=== PATIENT | male | born 1965 | race Hispanic/Latino ===

== ENCOUNTER 2017-11-04 12:51 | Inpatient (IN) | payer OTHER, SELFPAY ==
[~2017-11-04] VITALS: Ht 165.1 cm; Wt 99.2 kg
[2017-11-04] VITALS (18 sets, daily range): BP systolic 120–188; BP diastolic 59–85
[~2017-11-04 12:51] MED LIST: HYDR-4068 PO; METF850T2 PO
[2017-11-04] MEDS ORDERED: HEPARIN SODIUM 1000UNIT/ML 10ML VIAL ONE ×3 (13:55→17:38)
[2017-11-04] MEDS ORDERED: ISOVUE-300 100 ML VIAL IV ONE (13:55)
[2017-11-04] MEDS ORDERED: SODIUM BICARB 50MEQ 50ML VIAL ONE (13:55)
[2017-11-04] MEDS ORDERED: NITROGLYCERIN 5 MG/ML 10 ML VIAL IV ONE (13:55)
[2017-11-04] MEDS ORDERED: LIDOCAINE HCL 2% 20ML ONE (13:56)
[2017-11-04] MEDS ORDERED: ISOVUE-370 50ML VIAL IV ONE (14:13)
[2017-11-04] MEDS ORDERED: MIDAZOLAM HCL 1 MG/ML 2ML VIAL ONE ×3 (14:29→17:04)
[2017-11-04] MEDS ORDERED: MEPERIDINE-PF 25 MG/ML SYG ONE ×2 (14:29→15:08)
[2017-11-04] MEDS ORDERED: HEPARIN 25000 UNITS/250 ML D5W 250 ML IV ONE (15:46)
[2017-11-04] MEDS ORDERED: CEFUROXIME 1.5GM+NS 100ML 100 ML IV SCH (16:00)
[2017-11-04] MEDS ORDERED: DEXTROSE 50%-WATER 50 ML DISP.SYRIN IV PRN (16:15)
[2017-11-04] MEDS ORDERED: GLUCAGON 1MG KIT 1 MG ML IM PRN (16:15)
[2017-11-04] MEDS ORDERED: HEPARIN 25000 UNITS/250 ML D5W 250 ML IV PRN (16:15)
[2017-11-04] MEDS ORDERED: CEFUROXIME SODIUM 1.5 GM VIAL IVP SCH (16:45)
[2017-11-04] MEDS ORDERED: WATER FOR INJECTION,STERILE 20 ML VIAL IJ SCH (16:45)
[2017-11-04] MEDS ORDERED: PROPOFOL 10 MG/ML 20ML VIAL IV ONE ×2 (17:03→18:35)
[2017-11-04] MEDS ORDERED: FENTANYL CITRATE PF 50 MCG/1 ML 2ML VIAL ONE (17:03)
[2017-11-04] MEDS ORDERED: ROCURONIUM BROMIDE 10MG/1ML 5ML VL ONE (17:03)
[2017-11-04 17:04] LABS: HEMATOCRIT 42.4 % (42-54); MEAN CORPUSCULAR HEMOGLOBIN 29.7 pg (27.0-33.0); MEAN CORPUSCULAR VOLUME 90.1 fL (79-99); PLATELET COUNT (AUTO) 293 K/uL (130-400); RED CELL DISTRIBUTION WIDTH 13.1 % (11.0-15.5); WHITE BLOOD COUNT (AUTO) 12.3 K/uL (4.8-10.8)
[2017-11-04 17:17] LABS: CREATININE 0.8 mg/dL (0.5-1.5); POTASSIUM 4.5 mmol/L (3.5-5.1)
[2017-11-04 17:19] LABS: INR 1.05 (0.85-1.15); PARTIAL THROMBOPLASTIN TIME 33.1 SEC (26.3-35.5)
[2017-11-04] MEDS ORDERED: CEFUROXIME SODIUM 1.5 GM VIAL ONE (17:30)
[2017-11-04] MEDS ORDERED: OCTYL 2-CYANOACRYLATE 1 EACH TP ONE (17:38)
[2017-11-04] MEDS ORDERED: BACITRACIN 50,000 UNIT VIAL ONE (17:38)
[2017-11-04] MEDS ORDERED: THROMBIN-JMI 5000 UNIT/VIAL TP ONE (17:41)
[2017-11-04] MEDS ORDERED: CALCIUM CHLORIDE 100 MG/ML 10 ML SYG IVP ONE (17:41)
[2017-11-04] MEDS ORDERED: FENTANYL CITRATE PF 50 MCG/1 ML 5ML AMP IV ONE (17:50)
[2017-11-04] MEDS ORDERED: ACETAMINOPHEN 325 MG TAB PO PRN (18:00)
[2017-11-04] MEDS ORDERED: MAGNESIUM HYDROXIDE 30 ML/UDCUP PO PRN (18:00)
[2017-11-04] MEDS ORDERED: NEOSTIGMINE METHYLSULFATE 1MG/ML IV ONE (18:57)
[2017-11-04] MEDS ORDERED: GLYCOPYRROLATE 0.2 MG/ML 5 ML VIAL ONE (18:58)
[2017-11-04] MEDS: WATER FOR INJECTION,STERILE 20 ML VIAL IJ SCH (20:29)
[2017-11-04] MEDS: CEFUROXIME SODIUM 1.5 GM VIAL IVP SCH (20:29)
[2017-11-04] MEDS: INSULIN HUMULIN R 100 UNIT/ML 3ML SQ SCH (21:00)
[2017-11-04] MEDS ORDERED: ASPIRIN 325MG EC TAB 325 MG TABLET.DR PO SCH (21:00)
[2017-11-05] VITALS (15 sets, daily range): BP systolic 104–156; BP diastolic 57–85
[2017-11-05] MEDS: HYDROCODONE/ACETAMINOPHEN 5/325 MG TAB PO PRN ×2 (00:50→20:08)
[2017-11-05] MEDS ORDERED: CEFUROXIME 1.5GM+NS 100ML 100 ML IV SCH (02:00)
[2017-11-05 05:03] LABS: HEMATOCRIT 37.5 % (42-54); MEAN CORPUSCULAR HEMOGLOBIN 29.8 pg (27.0-33.0); MEAN CORPUSCULAR HGB CONC 33.4 g/dL (32.0-36.0); MEAN CORPUSCULAR VOLUME 89.3 fL (79-99); PLATELET COUNT (AUTO) 249 K/uL (130-400); RED CELL DISTRIBUTION WIDTH 13.1 % (11.0-15.5); WHITE BLOOD COUNT (AUTO) 11.7 K/uL (4.8-10.8)
[2017-11-05 05:07] LABS: INR 1.08 (0.85-1.15); PARTIAL THROMBOPLASTIN TIME 43.1 SEC (26.3-35.5); PROTHROMBIN TIME 11.3 SEC (9.6-11.6)
[2017-11-05 05:15] LABS: ALBUMIN 2.3 g/dL (3.5-5.0); BILIRUBIN,TOTAL 0.7 mg/dL (0.2-1.0); CREATININE 0.8 mg/dL (0.5-1.5); TOTAL PROTEIN, SERUM 6.8 g/dL (6.0-8.3)
[2017-11-05 05:21] LABS: HEMOGLOBIN A1C 12.2 % (4.0-6.0)
[2017-11-05] MEDS ORDERED: HEPARIN SODIUM 5000UNIT/ML 1ML VIAL IV STA (05:35)
[2017-11-05] MEDS ORDERED: HEPARIN SODIUM 5000UNIT/ML 1ML VIAL ONE (05:40)
[2017-11-05] MEDS: WATER FOR INJECTION,STERILE 20 ML VIAL IJ SCH ×2 (06:12→17:27)
[2017-11-05] MEDS: CEFUROXIME SODIUM 1.5 GM VIAL IVP SCH ×2 (06:12→17:27)
[2017-11-05] MEDS: INSULIN HUMULIN R 100 UNIT/ML 3ML SQ SCH ×4 (06:28→20:42)
[2017-11-05 08:31] LABS: INR 1.09 (0.85-1.15); PROTHROMBIN TIME 11.4 SEC (9.6-11.6)
[2017-11-05] MEDS ORDERED: ASPIRIN 81MG TAB.CHEW ONE (09:28)
[2017-11-05] MEDS: ASPIRIN 325MG EC TAB 325 MG TABLET.DR PO SCH (09:29)
[2017-11-05] MEDS: FAMOTIDINE/PF 20 MG/2 ML VIAL IV SCH (09:29)
[2017-11-05] MEDS: INSULIN DETEMIR 10ML 100 UNIT/ML 10ML SQ SCH (09:35)
[2017-11-05] MEDS: APIXABAN 5 MG TABLET PO SCH ×2 (12:04→20:03)
[2017-11-05] MEDS ORDERED: METF500T6 PO (17:35)
[2017-11-05] MEDS: ATORVASTATIN CALCIUM 40 MG TABLET PO SCH (20:03)
[2017-11-05] MEDS: METOPROLOL TARTRATE 25 MG TAB PO SCH (20:03)
[2017-11-06 03:34] LABS: MEAN CORPUSCULAR HEMOGLOBIN 30.9 pg (27.0-33.0); MEAN CORPUSCULAR HGB CONC 34.6 g/dL (32.0-36.0); MEAN CORPUSCULAR VOLUME 89.2 fL (79-99); PLATELET COUNT (AUTO) 205 K/uL (130-400); RED BLOOD CELL COUNT(AUTO) 3.92 MIL/uL (4.50-6.20); RED CELL DISTRIBUTION WIDTH 12.8 % (11.0-15.5); WHITE BLOOD COUNT (AUTO) 8.8 K/uL (4.8-10.8)
[2017-11-06 03:37] VITALS: BP 128/65
[2017-11-06 03:57] LABS: CREATININE 0.8 mg/dL (0.5-1.5); POTASSIUM 3.3 mmol/L (3.5-5.1)
[2017-11-06 04:06] LABS: BAND NEUTROPHILS % (MANUAL) 3 % (0-2); LYMPHOCYTES % (MANUAL) 18 % (22-44); MAN.DIFF COMMENT-IMPRESSION MANUAL DIFFERENTIAL; MONOCYTES % (MANUAL) 6 % (2-9); PLATELET MORPHOLOGY COMMENT ADEQUATE; SEGMENTED NEUTROPHILS % 73 % (40-70)
[2017-11-06] MEDS: CEFUROXIME SODIUM 1.5 GM VIAL IVP SCH ×2 (06:12→17:15)
[2017-11-06] MEDS: WATER FOR INJECTION,STERILE 20 ML VIAL IJ SCH ×2 (06:13→17:15)
[2017-11-06] MEDS: INSULIN HUMULIN R 100 UNIT/ML 3ML SQ SCH ×4 (06:14→21:45)
[2017-11-06] MEDS: INSULIN DETEMIR 10ML 100 UNIT/ML 10ML SQ SCH (06:15)
[2017-11-06] MEDS: HYDROCODONE/ACETAMINOPHEN 5/325 MG TAB PO PRN (06:31)
[2017-11-06 07:37] VITALS: BP 137/77
[2017-11-06] MEDS: ASPIRIN 325MG EC TAB 325 MG TABLET.DR PO SCH (09:03)
[2017-11-06] MEDS: APIXABAN 5 MG TABLET PO SCH ×2 (09:03→20:31)
[2017-11-06] MEDS: FAMOTIDINE/PF 20 MG/2 ML VIAL IV SCH (09:03)
[2017-11-06] MEDS: METOPROLOL TARTRATE 25 MG TAB PO SCH ×2 (09:03→20:31)
[2017-11-06 11:38] VITALS: BP 93/69
[2017-11-06] MEDS ORDERED: POTASSIUM CHLORIDE 10% ELIXIR 20 MEQ/15 ML UDCUP PO PRN (15:15)
[2017-11-06] MEDS ORDERED: POTASSIUM CHLORIDE 20MEQ/100ML 100 ML IV PRN (15:15)
[2017-11-06] MEDS ORDERED: LIDOCAINE HCL-MPF 1% 2ML VIAL IVP PRN (15:15)
[2017-11-06] MEDS: TRAMADOL HCL 50 MG TABLET PO PRN ×2 (15:23→23:15)
[2017-11-06] MEDS: POTASSIUM CHLORIDE 20 MEQ ERTAB PO PRN ×3 (15:23→18:42)
[2017-11-06 16:00] VITALS: BP 120/62
[2017-11-06 19:48] VITALS: BP 141/70
[2017-11-06] MEDS: ATORVASTATIN CALCIUM 40 MG TABLET PO SCH (20:31)
[2017-11-06] MEDS: GABAPENTIN 300 MG CAPSULE PO SCH (20:31)
[2017-11-06 23:43] VITALS: BP 142/71
[2017-11-07 04:15] VITALS: BP 134/75
[2017-11-07 05:22] LABS: CREATININE 0.8 mg/dL (0.5-1.5)
[2017-11-07] MEDS: CEFUROXIME SODIUM 1.5 GM VIAL IVP SCH (06:40)
[2017-11-07] MEDS: WATER FOR INJECTION,STERILE 20 ML VIAL IJ SCH (06:41)
[2017-11-07] MEDS: INSULIN HUMULIN R 100 UNIT/ML 3ML SQ SCH (06:42)
[2017-11-07] MEDS ORDERED: INSULIN GLARGINE 100 UNITS/ML 10 ML VIAL SQ SCH (07:30)
[2017-11-07 07:55] VITALS: BP 135/75
[2017-11-07] MEDS: GABAPENTIN 300 MG CAPSULE PO SCH (08:35)
[2017-11-07] MEDS: ASPIRIN 325MG EC TAB 325 MG TABLET.DR PO SCH (08:35)
[2017-11-07] MEDS: METOPROLOL TARTRATE 25 MG TAB PO SCH (08:35)
[2017-11-07] MEDS: APIXABAN 5 MG TABLET PO SCH (08:35)
[2017-11-07] MEDS: FAMOTIDINE/PF 20 MG/2 ML VIAL IV SCH (08:35)
[2017-11-07] MEDS: TRAMADOL HCL 50 MG TABLET PO PRN (08:39)
[2017-11-07] MEDS ORDERED: ATOR40TA69 PO (08:49)
[2017-11-07] MEDS ORDERED: APIX5TAB PO (08:49)
[2017-11-07] MEDS ORDERED: ASPI-891 PO (08:49)
[2017-11-07] MEDS ORDERED: GABA-531 PO (08:49)
[2017-11-07] MEDS ORDERED: METO25 PO (08:49)
[2017-11-07] MEDS ORDERED: TRAM50TA2 PO (08:49)
[2017-11-07] MEDS ORDERED: METF500T6 PO (08:49)
[2017-11-07] MEDS ORDERED: GLIP5TAB11 PO (08:49)
[2017-11-07 11:17] VITALS: BP 137/76
== END 2017-11-07 14:15 | disposition home or self-care (01) | DRG 271 ==
LOC: 2DH 13:50 → 2BH 18:21 → 2AH 11-05 14:08 → 2DH 11-06 10:39
PROVIDERS: ADMIT Family Medicine; ATTEND Family Medicine
PROC: 047K3ZZ Dilation of Right Femoral Artery, Percutaneous Approach (ICD-10-PCS; 2017-11-04)
PROC: B41C1ZZ Fluoroscopy of Pelvic Arteries using Low Osmolar Contrast (ICD-10-PCS; 2017-11-04)
PROC: 04CC3ZZ Extirpation of Matter from Right Common Iliac Artery, Percutaneous Approach (ICD-10-PCS; 2017-11-04)
PROC: 04CK3ZZ Extirpation of Matter from Right Femoral Artery, Percutaneous Approach (ICD-10-PCS; 2017-11-04)
PROC: 04CM3ZZ Extirpation of Matter from Right Popliteal Artery, Percutaneous Approach (ICD-10-PCS; 2017-11-04)
PROC: B4101ZZ Fluoroscopy of Abdominal Aorta using Low Osmolar Contrast (ICD-10-PCS; principal; 2017-11-04 17:00)
DX: I74.5 Embolism and thrombosis of iliac artery (principal); N39.0 Urinary tract infection, site not specified; E11.51 Type 2 diabetes mellitus with diabetic peripheral angiopathy without gangrene; E46 Unspecified protein-calorie malnutrition; E11.65 Type 2 diabetes mellitus with hyperglycemia; E78.5 Hyperlipidemia, unspecified; I10 Essential (primary) hypertension; I70.209 Unspecified atherosclerosis of native arteries of extremities, unspecified extremity; I99.8 Other disorder of circulatory system; I25.2 Old myocardial infarction; Z79.01 Long term (current) use of anticoagulants; Z79.82 Long term (current) use of aspirin; Z83.3 Family history of diabetes mellitus
CPT/HCPCS: 36415; 37220; 37222; 37224; 37246; 75625; 75635; 75710; 80048; 80053; 80061; 82948; 83036; 85025; 85027; 85610; 85730; 86850; 86900; 86901; 86922; 87804; 88304; 93005; 93306; 99152; 99153; A4344; C1725; C1757; C1769; C1893; C1894; J0697; J1644; J1815; J2175; J2250; J2704; J2710; J3010; J3490; J7030; J7040; Q9967

== ENCOUNTER 2017-12-22 12:39 | Inpatient (IN) | payer OTHER, SELFPAY ==
[~2017-12-22] VITALS: Ht 165.1 cm; Wt 95.4 kg
[~2017-12-22 12:39] MED LIST changes: +APIX5TAB PO; +ASPI-891 PO; +ATOR40TA69 PO; +GABA-531 PO; +GLIP5TAB11 PO; +METF500T6 PO; -METF850T2 PO; +METO25 PO; +TRAM50TA2 PO
[2017-12-22 13:28] LABS: BASOPHILS % (AUTO) 0.8 % (0.0-5.0); EOSINOPHILS % (AUTO) 0.8 % (0.0-8.0); LYMPHOCYTES % (AUTO) 27.1 % (21.0-51.0); MEAN CORPUSCULAR HGB CONC 33.1 g/dL (32.0-36.0); MEAN CORPUSCULAR VOLUME 87.4 fL (79-99); MONOCYTES % (AUTO) 6.8 % (3.0-13.0); NEUTROPHILS % (AUTO) 64.5 % (40.0-77.0); PLATELET COUNT (AUTO) 291 K/uL (130-400); RED BLOOD CELL COUNT(AUTO) 4.35 MIL/uL (4.50-6.20); RED CELL DISTRIBUTION WIDTH 13.9 % (11.0-15.5); WHITE BLOOD COUNT (AUTO) 9.1 K/uL (4.8-10.8)
[2017-12-22 13:36] LABS: CREATININE 0.8 mg/dL (0.5-1.5); POTASSIUM 3.6 mmol/L (3.5-5.1)
[2017-12-22 13:40] LABS: ALBUMIN 3.1 g/dL (3.5-5.0); BILIRUBIN,TOTAL 0.3 mg/dL (0.2-1.0); TOTAL PROTEIN, SERUM 8.1 g/dL (6.0-8.3)
[2017-12-22 14:46] LABS: INR 1.05 (0.85-1.15); PARTIAL THROMBOPLASTIN TIME 24.6 SEC (26.3-35.5)
[2017-12-22] MEDS: SODIUM CHLORIDE 0.9% 1000ML 1,000 ML IV SCH (15:38)
[2017-12-22] MEDS ORDERED: LACTULOSE 20 GM/30 ML UDCUP PO PRN (15:45)
[2017-12-22] MEDS ORDERED: ACETAMINOPHEN 325 MG TAB PO PRN ×2 (15:45)
[2017-12-22] MEDS ORDERED: MAG HYDROX/AL HYDROX/SIMETH ES 30 ML SUSP UDCUP PO PRN (15:45)
[2017-12-22] MEDS ORDERED: GUAIFENESIN-DM 200/20 MG 10 ML PO PRN (15:45)
[2017-12-22] MEDS ORDERED: ONDANSETRON HCL 4 MG/2 ML VIAL IV PRN (15:45)
[2017-12-22] MEDS ORDERED: HEPARIN SODIUM 5000UNIT/ML 1ML VIAL ONE (15:49)
[2017-12-22] MEDS ORDERED: HEPARIN 25000 UNITS/250 ML D5W 250 ML IV ONE (15:50)
[2017-12-22] MEDS ORDERED: MORPHINE SULFATE 4 MG/1ML SYG ONE (16:17)
[2017-12-22] MEDS ORDERED: ONDANSETRON HCL 4 MG/2 ML VIAL ONE (16:18)
[2017-12-22] MEDS ORDERED: TRAMADOL HCL 50 MG TABLET PO PRN (19:15)
[2017-12-22] MEDS ORDERED: ATORVASTATIN CALCIUM 40 MG TABLET PO SCH (21:00)
[2017-12-22] MEDS ORDERED: SODIUM CHLORIDE 0.9% 1000ML 1,000 ML IV ONE (21:20)
[2017-12-22] MEDS ORDERED: MORPHINE SULFATE 2 MG/ML 1ML SYG ONE (21:21)
[2017-12-22 21:24] LABS: INR 1.07 (0.85-1.15); PARTIAL THROMBOPLASTIN TIME 63.5 SEC (26.3-35.5); PROTHROMBIN TIME 11.2 SEC (9.6-11.6)
[2017-12-22 22:30] VITALS: BP 133/57
[2017-12-22] MEDS ORDERED: DEXTROSE 50%-WATER 50 ML DISP.SYRIN IV PRN (22:45)
[2017-12-22] MEDS ORDERED: LIDOCAINE HCL-MPF 1% 2ML VIAL IVP PRN (22:45)
[2017-12-22] MEDS ORDERED: GLUCAGON 1MG KIT 1 MG ML IM PRN (22:45)
[2017-12-22] MEDS ORDERED: POTASSIUM CHLORIDE 10% ELIXIR 20 MEQ/15 ML UDCUP PO PRN (22:45)
[2017-12-22] MEDS ORDERED: POTASSIUM CHLORIDE 20MEQ/100ML 100 ML IV PRN (22:45)
[2017-12-22 23:00] VITALS: BP 126/74
[2017-12-22] MEDS: METOPROLOL TARTRATE 25 MG TAB PO SCH (23:45)
[2017-12-22] MEDS: GLIPIZIDE 5 MG TABLET PO SCH (23:45)
[2017-12-22] MEDS: FAMOTIDINE/PF 20 MG/2 ML VIAL IV SCH (23:45)
[2017-12-22] MEDS: GABAPENTIN 300 MG CAPSULE PO SCH (23:46)
[2017-12-23 03:00] VITALS: BP 104/57
[2017-12-23 03:29] LABS: INR 1.07 (0.85-1.15); PARTIAL THROMBOPLASTIN TIME 50.2 SEC (26.3-35.5); PROTHROMBIN TIME 11.2 SEC (9.6-11.6)
[2017-12-23] MEDS: SODIUM CHLORIDE 0.9% 1000ML 1,000 ML IV SCH ×3 (06:09→16:30)
[2017-12-23] MEDS: INSULIN HUMULIN R 100 UNIT/ML 3ML SQ SCH ×4 (06:09→21:00)
[2017-12-23] MEDS: HEPARIN 25000 UNITS/250 ML D5W 250 ML IV PRN ×2 (06:15→23:21)
[2017-12-23] MEDS ORDERED: LISI2.5T2 PO (07:00)
[2017-12-23] MEDS ORDERED: CILO50TA PO (07:00)
[2017-12-23] MEDS ORDERED: SIMV40TA5 PO (07:00)
[2017-12-23 08:00] VITALS: BP 115/69
[2017-12-23] MEDS: MORPHINE SULFATE 2 MG/ML 1ML SYG IV PRN (08:22)
[2017-12-23] MEDS: ASPIRIN 325MG EC TAB 325 MG TABLET.DR PO SCH (09:00)
[2017-12-23] MEDS: GLIPIZIDE 5 MG TABLET PO SCH ×2 (09:00→21:07)
[2017-12-23 10:11] LABS: INR 1.09 (0.85-1.15); PARTIAL THROMBOPLASTIN TIME 48.1 SEC (26.3-35.5); PROTHROMBIN TIME 11.4 SEC (9.6-11.6)
[2017-12-23] MEDS: FAMOTIDINE/PF 20 MG/2 ML VIAL IV SCH ×2 (11:26→21:07)
[2017-12-23] MEDS: GABAPENTIN 300 MG CAPSULE PO SCH ×3 (11:26→21:00)
[2017-12-23] MEDS: METOPROLOL TARTRATE 25 MG TAB PO SCH ×2 (11:26→21:06)
[2017-12-23 12:00] VITALS: BP 129/69
[2017-12-23 16:00] VITALS: BP 99/54
[2017-12-23] MEDS ORDERED: WATER FOR INJECTION,STERILE 20 ML VIAL IJ SCH (18:45)
[2017-12-23] MEDS ORDERED: CEFUROXIME 1.5GM+NS 100ML 100 ML IV SCH (18:45)
[2017-12-23] MEDS: CEFUROXIME SODIUM 1.5 GM VIAL IVP SCH (18:45)
[2017-12-23 18:56] LABS: BASOPHILS % (AUTO) 0.9 % (0.0-5.0); EOSINOPHILS % (AUTO) 0.9 % (0.0-8.0); HEMATOCRIT 32.9 % (42-54); LYMPHOCYTES % (AUTO) 35.2 % (21.0-51.0); MEAN CORPUSCULAR HEMOGLOBIN 29.3 pg (27.0-33.0); MEAN CORPUSCULAR HGB CONC 33.7 g/dL (32.0-36.0); MEAN CORPUSCULAR VOLUME 86.9 fL (79-99); MONOCYTES % (AUTO) 8.6 % (3.0-13.0); NEUTROPHILS % (AUTO) 54.4 % (40.0-77.0); PLATELET COUNT (AUTO) 236 K/uL (130-400); RED BLOOD CELL COUNT(AUTO) 3.78 MIL/uL (4.50-6.20); RED CELL DISTRIBUTION WIDTH 13.6 % (11.0-15.5); WHITE BLOOD COUNT (AUTO) 5.3 K/uL (4.8-10.8)
[2017-12-23 19:03] LABS: INR 1.1 (0.85-1.15); PARTIAL THROMBOPLASTIN TIME 51.2 SEC (26.3-35.5); PROTHROMBIN TIME 11.5 SEC (9.6-11.6)
[2017-12-23 19:12] LABS: ALBUMIN 2.4 g/dL (3.5-5.0); BILIRUBIN,TOTAL 0.4 mg/dL (0.2-1.0); CREATININE 0.9 mg/dL (0.5-1.5); POTASSIUM 3.6 mmol/L (3.5-5.1); TOTAL PROTEIN, SERUM 6.6 g/dL (6.0-8.3)
[2017-12-23 19:38] VITALS: BP 136/76
[2017-12-23] MEDS: ATORVASTATIN CALCIUM 20 MG TABLET PO SCH (21:07)
[2017-12-24] VITALS (23 sets, daily range): BP systolic 89–138; BP diastolic 58–90
[2017-12-24] MEDS: MORPHINE SULFATE 2 MG/ML 1ML SYG IV PRN (03:28)
[2017-12-24 04:03] LABS: HEMATOCRIT 35.2 % (42-54); MEAN CORPUSCULAR HEMOGLOBIN 29.4 pg (27.0-33.0); MEAN CORPUSCULAR HGB CONC 33.7 g/dL (32.0-36.0); MEAN CORPUSCULAR VOLUME 87.2 fL (79-99); PLATELET COUNT (AUTO) 261 K/uL (130-400); RED BLOOD CELL COUNT(AUTO) 4.03 MIL/uL (4.50-6.20); RED CELL DISTRIBUTION WIDTH 13.6 % (11.0-15.5); WHITE BLOOD COUNT (AUTO) 5.1 K/uL (4.8-10.8)
[2017-12-24 04:04] LABS: INR 1.07 (0.85-1.15); PARTIAL THROMBOPLASTIN TIME 50.9 SEC (26.3-35.5); PROTHROMBIN TIME 11.2 SEC (9.6-11.6)
[2017-12-24 04:09] LABS: CREATININE 0.8 mg/dL (0.5-1.5); POTASSIUM 3.7 mmol/L (3.5-5.1)
[2017-12-24] MEDS: INSULIN HUMULIN R 100 UNIT/ML 3ML SQ SCH ×4 (07:30→21:09)
[2017-12-24] MEDS: METOPROLOL TARTRATE 25 MG TAB PO SCH ×2 (08:04→20:48)
[2017-12-24] MEDS: SODIUM CHLORIDE 0.9% 1000ML 1,000 ML IV SCH ×3 (08:48→16:46)
[2017-12-24] MEDS: FAMOTIDINE/PF 20 MG/2 ML VIAL IV SCH ×2 (09:00→20:37)
[2017-12-24] MEDS ORDERED: NON-FORMULARY MEDICATION 1 EACH (Simvastatin 40 MG) PO SCH (09:00)
[2017-12-24] MEDS: GABAPENTIN 300 MG CAPSULE PO SCH ×3 (09:00→20:51)
[2017-12-24] MEDS: ASPIRIN 325MG EC TAB 325 MG TABLET.DR PO SCH (09:00)
[2017-12-24] MEDS: GLIPIZIDE 5 MG TABLET PO SCH ×2 (09:00→20:50)
[2017-12-24] MEDS: LISINOPRIL 2.5 MG TABLET PO SCH (09:00)
[2017-12-24] MEDS ORDERED: PHENYLEPHRINE HCL 10 MG/ML 1ML VIAL IV ONE ×3 (09:22→11:38)
[2017-12-24] MEDS ORDERED: NEOSTIGMINE 5MG/5ML SYR IV ONE ×2 (09:22→11:37)
[2017-12-24] MEDS ORDERED: MIDAZOLAM HCL 1 MG/ML 2ML VIAL ONE (09:22)
[2017-12-24] MEDS ORDERED: DEXAMETHASONE SOD PHOSPHATE 10MG/ML 1ML VIAL ONE ×2 (09:22→11:38)
[2017-12-24] MEDS ORDERED: GLYCOPYRROLATE 0.2 MG/ML 5 ML VIAL ONE ×2 (09:22→11:38)
[2017-12-24] MEDS ORDERED: ONDANSETRON HCL 4 MG/2 ML VIAL ONE ×2 (09:22→11:38)
[2017-12-24] MEDS ORDERED: LIDOCAINE HCL MPF 1% 5ML VIAL ONE (09:22)
[2017-12-24] MEDS ORDERED: LIDOCAINE PF 2% 5ML ABBOJECT ONE (09:22)
[2017-12-24] MEDS ORDERED: LIDOCAINE HCL 4% LTA SOL 4 ML VIAL ONE (09:22)
[2017-12-24] MEDS ORDERED: ROCURONIUM BROMIDE 10MG/1ML 5ML VL ONE ×2 (09:22→11:37)
[2017-12-24] MEDS ORDERED: LIDOCAINE HCL 2% JELLY 5 ML ONE (09:22)
[2017-12-24] MEDS ORDERED: SODIUM CHLORIDE 0.9% 10 ML VIAL ONE (09:22)
[2017-12-24] MEDS ORDERED: FENTANYL CITRATE PF 50 MCG/1 ML 5ML AMP IV ONE (09:23)
[2017-12-24] MEDS: CEFUROXIME SODIUM 1.5 GM VIAL IVP SCH (10:45)
[2017-12-24] MEDS ORDERED: BACITRACIN 50,000 UNIT VIAL ONE (10:49)
[2017-12-24] MEDS ORDERED: THROMBIN-JMI 5000 UNIT/VIAL TP ONE (11:04)
[2017-12-24] MEDS ORDERED: SUCCINYLCHOLINE 200MG/10ML SYR ONE (11:37)
[2017-12-24] MEDS ORDERED: HEPARIN SODIUM 1000UNIT/ML 10ML VIAL ONE (11:37)
[2017-12-24] MEDS ORDERED: PROPOFOL 10 MG/ML 20ML VIAL IV ONE (12:38)
[2017-12-24] MEDS ORDERED: MORPHINE SULFATE 10 MG/ML 1ML SYG ONE (12:40)
[2017-12-24] MEDS ORDERED: MAGNESIUM HYDROXIDE 30 ML/UDCUP PO PRN (13:15)
[2017-12-24] MEDS ORDERED: ACETAMINOPHEN 325 MG TAB PO PRN (13:15)
[2017-12-24] MEDS ORDERED: CEFAZOLIN 2GM / 50 ML 50 ML IV SCH (13:15)
[2017-12-24] MEDS: CEFAZOLIN SODIUM 1 GM VIAL IVP SCH ×2 (13:30→21:01)
[2017-12-24] MEDS: HYDROCODONE/ACETAMINOPHEN 5/325 MG TAB PO PRN ×2 (16:07→20:50)
[2017-12-24] MEDS: ATORVASTATIN CALCIUM 20 MG TABLET PO SCH (20:50)
[2017-12-25] VITALS (21 sets, daily range): BP systolic 73–122; BP diastolic 37–73
[2017-12-25] MEDS: SODIUM CHLORIDE 0.9% 1000ML 1,000 ML IV SCH ×4 (01:06→23:07)
[2017-12-25] MEDS: HYDROCODONE/ACETAMINOPHEN 5/325 MG TAB PO PRN ×2 (01:06→03:19)
[2017-12-25 04:12] LABS: ALBUMIN 2.3 g/dL (3.5-5.0); BILIRUBIN,TOTAL 0.5 mg/dL (0.2-1.0); CREATININE 0.9 mg/dL (0.5-1.5); POTASSIUM 3.8 mmol/L (3.5-5.1); TOTAL PROTEIN, SERUM 6.6 g/dL (6.0-8.3)
[2017-12-25] MEDS: CEFAZOLIN SODIUM 1 GM VIAL IVP SCH (05:15)
[2017-12-25] MEDS: INSULIN HUMULIN R 100 UNIT/ML 3ML SQ SCH ×4 (06:30→21:06)
[2017-12-25] MEDS: POTASSIUM CHLORIDE 20 MEQ ERTAB PO PRN (07:26)
[2017-12-25] MEDS: GABAPENTIN 300 MG CAPSULE PO SCH ×3 (08:34→21:00)
[2017-12-25] MEDS: CLOPIDOGREL BISULFATE 75 MG TAB PO SCH (08:34)
[2017-12-25] MEDS: ASPIRIN 325MG EC TAB 325 MG TABLET.DR PO SCH (08:34)
[2017-12-25] MEDS: FAMOTIDINE/PF 20 MG/2 ML VIAL IV SCH (08:34)
[2017-12-25] MEDS: GLIPIZIDE 5 MG TABLET PO SCH ×2 (08:34→21:01)
[2017-12-25] MEDS: TRAMADOL HCL 50 MG TABLET PO PRN (08:35)
[2017-12-25] MEDS: LISINOPRIL 2.5 MG TABLET PO SCH (09:00)
[2017-12-25] MEDS: METOPROLOL TARTRATE 25 MG TAB PO SCH ×2 (09:00→21:00)
[2017-12-25 11:27] LABS: MEAN CORPUSCULAR HEMOGLOBIN 30.2 pg (27.0-33.0); MEAN CORPUSCULAR HGB CONC 34.4 g/dL (32.0-36.0); MEAN CORPUSCULAR VOLUME 87.8 fL (79-99); PLATELET COUNT (AUTO) 195 K/uL (130-400); RED BLOOD CELL COUNT(AUTO) 3.75 MIL/uL (4.50-6.20); RED CELL DISTRIBUTION WIDTH 13.5 % (11.0-15.5); WHITE BLOOD COUNT (AUTO) 10.8 K/uL (4.8-10.8)
[2017-12-25] MEDS: ATORVASTATIN CALCIUM 20 MG TABLET PO SCH (21:00)
[2017-12-25] MEDS: FAMOTIDINE 20MG TAB 20 MG TAB PO SCH (21:01)
[2017-12-26 03:44] VITALS: BP 111/66
[2017-12-26 04:08] LABS: HEMATOCRIT 31.3 % (42-54); MEAN CORPUSCULAR HEMOGLOBIN 29.7 pg (27.0-33.0); MEAN CORPUSCULAR HGB CONC 33.9 g/dL (32.0-36.0); MEAN CORPUSCULAR VOLUME 87.5 fL (79-99); PLATELET COUNT (AUTO) 157 K/uL (130-400); RED BLOOD CELL COUNT(AUTO) 3.57 MIL/uL (4.50-6.20); RED CELL DISTRIBUTION WIDTH 13.7 % (11.0-15.5); WHITE BLOOD COUNT (AUTO) 11.6 K/uL (4.8-10.8)
[2017-12-26 04:13] LABS: CREATININE 0.8 mg/dL (0.5-1.5); POTASSIUM 3.6 mmol/L (3.5-5.1)
[2017-12-26] MEDS: INSULIN HUMULIN R 100 UNIT/ML 3ML SQ SCH ×4 (06:25→20:46)
[2017-12-26 07:10] VITALS: BP 85/58
[2017-12-26] MEDS: CLOPIDOGREL BISULFATE 75 MG TAB PO SCH (08:10)
[2017-12-26] MEDS: ASPIRIN 81MG TAB.CHEW PO SCH (08:11)
[2017-12-26] MEDS: GABAPENTIN 300 MG CAPSULE PO SCH ×3 (08:11→20:47)
[2017-12-26] MEDS: POTASSIUM CHLORIDE 20 MEQ ERTAB PO PRN (08:11)
[2017-12-26] MEDS: GLIPIZIDE 5 MG TABLET PO SCH ×2 (08:11→20:48)
[2017-12-26] MEDS: FAMOTIDINE 20MG TAB 20 MG TAB PO SCH ×2 (08:11→20:47)
[2017-12-26] MEDS: LISINOPRIL 2.5 MG TABLET PO SCH (08:12)
[2017-12-26] MEDS: METOPROLOL TARTRATE 25 MG TAB PO SCH ×2 (08:12→20:46)
[2017-12-26 11:22] VITALS: BP 97/60
[2017-12-26 16:14] VITALS: BP 131/64
[2017-12-26 20:00] VITALS: BP 91/54
[2017-12-26] MEDS: ATORVASTATIN CALCIUM 20 MG TABLET PO SCH (20:47)
[2017-12-26 23:37] VITALS: BP 100/48
[2017-12-27 04:00] VITALS: BP 103/62
[2017-12-27] MEDS: INSULIN HUMULIN R 100 UNIT/ML 3ML SQ SCH ×3 (05:38→16:30)
[2017-12-27 07:31] VITALS: BP 100/59
[2017-12-27] MEDS: METOPROLOL TARTRATE 25 MG TAB PO SCH (09:00)
[2017-12-27] MEDS ORDERED: ENOXAPARIN SODIUM 30 MG/0.3 ML SQ SCH (09:00)
[2017-12-27] MEDS: LISINOPRIL 2.5 MG TABLET PO SCH (09:00)
[2017-12-27] MEDS: FAMOTIDINE 20MG TAB 20 MG TAB PO SCH (09:24)
[2017-12-27] MEDS: GABAPENTIN 300 MG CAPSULE PO SCH ×2 (09:24→14:22)
[2017-12-27] MEDS: CLOPIDOGREL BISULFATE 75 MG TAB PO SCH (09:24)
[2017-12-27] MEDS: GLIPIZIDE 5 MG TABLET PO SCH (09:24)
[2017-12-27] MEDS: ASPIRIN 81MG TAB.CHEW PO SCH (09:24)
[2017-12-27] MEDS ORDERED: CLOP75TA14 PO (10:10)
[2017-12-27 11:19] VITALS: BP 90/52
[2017-12-27] MEDS: TRAMADOL HCL 50 MG TABLET PO PRN (13:01)
== END 2017-12-27 18:10 | disposition home or self-care (01) | DRG 181 ==
LOC: EDH 12:39 → OBSVTOIN 15:38 → EDHIP 15:38 → 3CH 20:44 → 2CH 12-24 11:00 → 2DH 12-27 06:35
PROVIDERS: ADMIT Family Medicine; ATTEND Family Medicine
PROC: 03150J8 Bypass Right Axillary Artery to Bilateral Upper Leg Artery with Synthetic Substitute, Open Approach (ICD-10-PCS; principal; 2017-12-24 10:30)
DX: E11.51 Type 2 diabetes mellitus with diabetic peripheral angiopathy without gangrene (principal); I74.09 Other arterial embolism and thrombosis of abdominal aorta; I95.9 Hypotension, unspecified; E11.65 Type 2 diabetes mellitus with hyperglycemia; E44.1 Mild protein-calorie malnutrition; I74.5 Embolism and thrombosis of iliac artery; E78.5 Hyperlipidemia, unspecified; I25.10 Atherosclerotic heart disease of native coronary artery without angina pectoris; I99.8 Other disorder of circulatory system; D64.9 Anemia, unspecified; I10 Essential (primary) hypertension; M62.261 Nontraumatic ischemic infarction of muscle, right lower leg; Z83.3 Family history of diabetes mellitus; Z79.899 Other long term (current) drug therapy; Z79.84 Long term (current) use of oral hypoglycemic drugs; Z79.01 Long term (current) use of anticoagulants; Z79.82 Long term (current) use of aspirin; Z79.02 Long term (current) use of antithrombotics/antiplatelets; Z95.1 Presence of aortocoronary bypass graft
CPT/HCPCS: 36415; 80048; 80053; 82948; 85025; 85027; 85610; 85730; 86850; 86900; 86901; 86922; 87040; 93925; 93971; 94010; A4218; J0330; J0690; J0697; J1100; J1644; J1650; J1815; J2001; J2250; J2270; J2370; J2405; J2704; J2710; J3010; J3490; J7030; J7040

== ENCOUNTER 2018-01-24 23:15 | Inpatient (IN) | payer OTHER ==
[~2018-01-24] VITALS: Ht 182.9 cm; Wt 75.7 kg
[~2018-01-24 23:15] MED LIST changes: +CILO50TA PO; +CLOP75TA14 PO; +LISI2.5T2 PO; +SIMV40TA5 PO
[2018-01-24 23:37] LABS: BASOPHILS % (AUTO) 0.3 % (0.0-5.0); HEMATOCRIT 24.1 % (42-54); LYMPHOCYTES % (AUTO) 4.5 % (21.0-51.0); MEAN CORPUSCULAR HEMOGLOBIN 27.7 pg (27.0-33.0); MEAN CORPUSCULAR VOLUME 83.8 fL (79-99); MONOCYTES % (AUTO) 5.8 % (3.0-13.0); NEUTROPHILS % (AUTO) 89.4 % (40.0-77.0); PLATELET COUNT (AUTO) 436 K/uL (130-400); RED BLOOD CELL COUNT(AUTO) 2.88 MIL/uL (4.50-6.20); RED CELL DISTRIBUTION WIDTH 15.7 % (11.0-15.5); WHITE BLOOD COUNT (AUTO) 18.9 K/uL (4.8-10.8)
[2018-01-24] MEDS ORDERED: IOPAMIDOL-370 100 ML VIAL IV ONE (23:40)
[2018-01-24 23:46] LABS: CREATININE 1.3 mg/dL (0.5-1.5); INR 1.39 (0.85-1.15); PARTIAL THROMBOPLASTIN TIME 27.4 SEC (26.3-35.5); POTASSIUM 3.9 mmol/L (3.5-5.1); PROTHROMBIN TIME 14.5 SEC (9.6-11.6)
[2018-01-24 23:46] LABS: APPEARANCE,URINE Clear (CLEAR); BILIRUBIN,URINE Negative (NEGATIVE); COLOR,URINE Dark Yellow (YELLOW); GLUCOSE, URINE (UA) >=1000 mg/dL (NEGATIVE); KETONES,URINE 15 mg/dL (NEGATIVE); LEUKOCYTE ESTERASE ,URINE Small (NEGATIVE); NITRATE,URINE Positive (NEGATIVE); OCCULT BLOOD,URINE Negative (NEGATIVE); PH,URINE 5.5 (5.0-8.0); PROTEIN,URINE Trace (NEGATIVE)
[2018-01-24] MEDS ORDERED: VANCOMYCIN 1GM+NS 250ML 250 ML IV ONE (23:46)
[2018-01-24] MEDS ORDERED: MEROPENEM 1 GM VIAL ONE (23:46)
[2018-01-25] VITALS (24 sets, daily range): BP systolic 66–143; BP diastolic 34–82
[2018-01-25] MEDS ORDERED: SODIUM CHLORIDE 0.9% 1000ML 2,000 ML IV ONE (00:10)
[2018-01-25] MEDS ORDERED: SODIUM CHLORIDE 0.9% 250 ML IV ONE (00:10)
[2018-01-25 00:13] LABS: ALBUMIN 1.6 g/dL (3.5-5.0); BILIRUBIN,TOTAL 0.7 mg/dL (0.2-1.0); CREATINE KINASE MB 2.7 ng/mL (0.5-3.6); TOTAL PROTEIN, SERUM 7.5 g/dL (6.0-8.3); TROPONIN I 0.08 ng/mL (0.00-0.06)
[2018-01-25 00:25] LABS: AMORPHOUS SEDIMENT,UR Few /LPF (None Seen); BACTERIA,URINE Few /HPF (None Seen); RBC,URINE None Seen /HPF (0-1)
[2018-01-25] MEDS: SODIUM CHLORIDE 0.9% 1000ML 1,000 ML IV SCH ×6 (03:00→23:08)
[2018-01-25] MEDS ORDERED: VANCOMYCIN 1GM+NS 250ML 250 ML IV SCH (03:00)
[2018-01-25] MEDS ORDERED: FAMOTIDINE 20MG TAB 20 MG TAB PO SCH (03:00)
[2018-01-25] MEDS ORDERED: DEXTROSE 50%-WATER 50 ML DISP.SYRIN IV PRN (03:00)
[2018-01-25] MEDS ORDERED: GLUCAGON 1MG KIT 1 MG ML IM PRN (03:00)
[2018-01-25] MEDS ORDERED: SODIUM CHLORIDE 0.9% 1000ML 1,000 ML IV ONE (03:14)
[2018-01-25] MEDS ORDERED: FAMOTIDINE 20MG TAB 20 MG TAB ONE (03:14)
[2018-01-25] MEDS ORDERED: HEPARIN SODIUM 5000UNIT/ML 1ML VIAL SQ SCH (03:30)
[2018-01-25] MEDS ORDERED: VANCOMYCIN PROTOCOL PER PHARMACY IV SCH (04:00)
[2018-01-25] MEDS: IPRATROPIUM/ALBUTEROL SULFATE 3 ML SOLUTION IH SCH ×4 (06:00→23:53)
[2018-01-25] MEDS ORDERED: MEROPENEM 500MG+NS 50ML 50 ML IV SCH (06:00)
[2018-01-25] MEDS ORDERED: COMPOUND IV REFRIGERATED 1 EACH IVSOLN MISC PRN (06:30)
[2018-01-25 06:33] LABS: BASOPHILS % (AUTO) 0.1 % (0.0-5.0); HEMATOCRIT 22.8 % (42-54); LYMPHOCYTES % (AUTO) 4.6 % (21.0-51.0); MEAN CORPUSCULAR HEMOGLOBIN 28.1 pg (27.0-33.0); MEAN CORPUSCULAR HGB CONC 33.2 g/dL (32.0-36.0); MEAN CORPUSCULAR VOLUME 84.7 fL (79-99); MONOCYTES % (AUTO) 5.6 % (3.0-13.0); NEUTROPHILS % (AUTO) 89.7 % (40.0-77.0); PLATELET COUNT (AUTO) 376 K/uL (130-400); RED BLOOD CELL COUNT(AUTO) 2.69 MIL/uL (4.50-6.20); RED CELL DISTRIBUTION WIDTH 15.8 % (11.0-15.5); WHITE BLOOD COUNT (AUTO) 17.6 K/uL (4.8-10.8)
[2018-01-25 07:12] LABS: CREATINE KINASE MB 3.7 ng/mL (0.5-3.6); TROPONIN I 0.09 ng/mL (0.00-0.06)
[2018-01-25] MEDS: INSULIN HUMULIN R 100 UNIT/ML 3ML SQ SCH ×4 (07:32→21:40)
[2018-01-25 08:19] LABS: CREATININE 0.9 mg/dL (0.5-1.5); POTASSIUM 3.8 mmol/L (3.5-5.1)
[2018-01-25] MEDS ORDERED: INSULIN DETEMIR 10ML 100 UNIT/ML 10ML SQ SCH (09:00)
[2018-01-25] MEDS ORDERED: ENOXAPARIN SODIUM 40 MG/0.4 ML SYRINGE SQ SCH (09:00)
[2018-01-25] MEDS: ASPIRIN 81MG TAB.CHEW PO SCH (10:45)
[2018-01-25] MEDS: FERROUS SULFATE 325 MG TABLET.DR PO SCH ×3 (10:45→21:29)
[2018-01-25] MEDS: VANCOMYCIN 1.25 GM in SODIUM CHLORIDE 0.9% 250 ML IV SCH ×2 (10:45→22:10)
[2018-01-25 11:23] LABS: CREATINE KINASE MB 3.9 ng/mL (0.5-3.6); TROPONIN I 0.09 ng/mL (0.00-0.06)
[2018-01-25 11:35] LABS: % IRON SATURATION 15.5 % (30-44)
[2018-01-25] MEDS ORDERED: AMIODARONE HCL 50 MG/ML 3 ML VIAL IV ONE (12:00)
[2018-01-25] MEDS: AMIODARONE HCL 900 MG in DEXTROSE 5%-WATER 500 ML IV SCH (13:01)
[2018-01-25] MEDS ORDERED: SODIUM CHLORIDE 0.9% 500ML 500 ML IV ONE (13:53)
[2018-01-25] MEDS ORDERED: FUROSEMIDE 10 MG/ML 2ML VIAL IV SCH (14:30)
[2018-01-25] MEDS: MEROPENEM 500 MG VIAL IVP SCH ×2 (14:40→21:29)
[2018-01-25 15:17] LABS: ABG HCO3 18.4 mmol/L (21.0-28.0); ABG OXYGEN SATURATION 99.4 % (95.0-99.0); ABG PCO2 27 mmHg (35-48)
[2018-01-25 16:19] LABS: CREATINE KINASE MB 3.9 ng/mL (0.5-3.6); TROPONIN I 0.1 ng/mL (0.00-0.06)
[2018-01-25 16:48] LABS: HEMATOCRIT 22.2 % (42-54)
[2018-01-25] MEDS: HEPARIN SODIUM 5000UNIT/ML 1ML VIAL SQ SCH (21:39)
[2018-01-26] VITALS (33 sets, daily range): BP systolic 86–151; BP diastolic 39–88
[2018-01-26] MEDS: NOREPINEPHRINE 4MG/NS 250ML 250 ML IV SCH (01:08)
[2018-01-26 03:53] LABS: HEMATOCRIT 21.6 % (42-54); MEAN CORPUSCULAR HEMOGLOBIN 27.7 pg (27.0-33.0); MEAN CORPUSCULAR HGB CONC 32.9 g/dL (32.0-36.0); MEAN CORPUSCULAR VOLUME 84.2 fL (79-99); PLATELET COUNT (AUTO) 393 K/uL (130-400); RED BLOOD CELL COUNT(AUTO) 2.57 MIL/uL (4.50-6.20); WHITE BLOOD COUNT (AUTO) 17.9 K/uL (4.8-10.8)
[2018-01-26 04:14] LABS: MAGNESIUM 1.5 mg/dL (1.80-2.40); POTASSIUM 3.4 mmol/L (3.5-5.1); THYROID STIMULATING HORMONE 2.79 uIU/mL (0.36-3.74)
[2018-01-26] MEDS: MEROPENEM 500 MG VIAL IVP SCH (05:33)
[2018-01-26] MEDS: INSULIN HUMULIN R 100 UNIT/ML 3ML SQ SCH ×4 (05:48→20:41)
[2018-01-26] MEDS: IPRATROPIUM/ALBUTEROL SULFATE 3 ML SOLUTION IH SCH ×3 (06:22→19:29)
[2018-01-26 07:45] LABS: ABG BASE EXCESS -3.3 mmol/L (-2.0-3.0); ABG HCO3 19.4 mmol/L (21.0-28.0); ABG OXYGEN SATURATION 99.1 % (95.0-99.0); ABG PCO2 29 mmHg (35-48)
[2018-01-26] MEDS: VANCOMYCIN 1.25 GM in SODIUM CHLORIDE 0.9% 250 ML IV SCH ×2 (08:53→22:12)
[2018-01-26] MEDS: FERROUS SULFATE 325 MG TABLET.DR PO SCH ×3 (08:53→20:43)
[2018-01-26] MEDS: HEPARIN SODIUM 5000UNIT/ML 1ML VIAL SQ SCH (08:54)
[2018-01-26] MEDS: ASPIRIN 81MG TAB.CHEW PO SCH (08:56)
[2018-01-26] MEDS: SODIUM CHLORIDE 0.9% 1000ML 1,000 ML IV SCH ×2 (08:57→19:22)
[2018-01-26] MEDS: INSULIN GLARGINE 100 UNITS/ML 10 ML VIAL SQ SCH (09:05)
[2018-01-26] MEDS ORDERED: CEFTAZIDIME 1GM+NS 50ML 50 ML IV SCH (10:45)
[2018-01-26] MEDS ORDERED: LIDOCAINE HCL 1% 20 ML VIAL ONE (10:50)
[2018-01-26] MEDS ORDERED: POTASSIUM CHLORIDE 20 MEQ ERTAB PO PRN (11:30)
[2018-01-26] MEDS ORDERED: LIDOCAINE HCL-MPF 1% 2ML VIAL IVP PRN (11:30)
[2018-01-26 12:24] LABS: COLOR,BODY FLUID LT YELLOW (LT YELLOW); TOTAL VOLUME,BODY FLUID 50 mL
[2018-01-26 12:25] LABS: BODY FLUID RBC 850 /cu. mm.; BODY FLUID WBC 432 /cu. mm.
[2018-01-26 12:26] LABS: APPEARANCE BODY FLUID SLIGHTLY CLOUDY (CLEAR); SPECIMENTYPE,BODY FLUID PLEURAL
[2018-01-26 12:35] LABS: BF LYMPHOCYTE 54 %; BF MONOCYTE 1 %
[2018-01-26] MEDS: MAGNESIUM 2GM PREMIX 50ML 50 ML IV PRN (12:36)
[2018-01-26] MEDS: POTASSIUM CHLORIDE 20MEQ/100ML 100 ML IV PRN (12:37)
[2018-01-26] MEDS: CEFTAZIDIME PENTAHYDRATE 1 GM/VIAL IVP SCH ×2 (12:37→19:22)
[2018-01-26] MEDS ORDERED: HEPARIN SODIUM 5000UNIT/ML 1ML VIAL SQ PRN (13:00)
[2018-01-26 13:39] LABS: INR 1.51 (0.85-1.15); PARTIAL THROMBOPLASTIN TIME 31.9 SEC (26.3-35.5); PROTHROMBIN TIME 15.7 SEC (9.6-11.6)
[2018-01-26] MEDS: HEPARIN 25000 UNITS/250 ML D5W 250 ML IV SCH (14:15)
[2018-01-26] MEDS: AMIODARONE HCL 900 MG in DEXTROSE 5%-WATER 500 ML IV SCH ×2 (15:49→16:34)
[2018-01-26] MEDS: NOREPINEPHRINE 4MG/NS 250ML 250 ML IV PRN (16:38)
[2018-01-27] VITALS (32 sets, daily range): BP systolic 84–138; BP diastolic 35–102
[2018-01-27] MEDS: IPRATROPIUM/ALBUTEROL SULFATE 3 ML SOLUTION IH SCH ×5 (00:29→23:24)
[2018-01-27] MEDS: CEFTAZIDIME PENTAHYDRATE 1 GM/VIAL IVP SCH ×2 (02:24→10:39)
[2018-01-27 02:28] LABS: HEMATOCRIT 26.1 % (42-54); MEAN CORPUSCULAR HEMOGLOBIN 29.2 pg (27.0-33.0); MEAN CORPUSCULAR HGB CONC 34.3 g/dL (32.0-36.0); MEAN CORPUSCULAR VOLUME 85.1 fL (79-99); PLATELET COUNT (AUTO) 435 K/uL (130-400); RED BLOOD CELL COUNT(AUTO) 3.06 MIL/uL (4.50-6.20); RED CELL DISTRIBUTION WIDTH 16.7 % (11.0-15.5); WHITE BLOOD COUNT (AUTO) 19.6 K/uL (4.8-10.8)
[2018-01-27] MEDS: NOREPINEPHRINE 4MG/NS 250ML 250 ML IV SCH (02:57)
[2018-01-27] MEDS: SODIUM CHLORIDE 0.9% 1000ML 1,000 ML IV SCH ×2 (02:57→14:39)
[2018-01-27 03:06] LABS: MAGNESIUM 2.1 mg/dL (1.80-2.40); PHOSPHORUS 3.3 mg/dL (2.5-4.9); POTASSIUM 4.5 mmol/L (3.5-5.1)
[2018-01-27 03:20] LABS: LYMPHOCYTES % (MANUAL) 6 % (22-44); MAN.DIFF COMMENT-IMPRESSION MANUAL DIFFERENTIAL; MONOCYTES % (MANUAL) 1 % (2-9); PLATELET MORPHOLOGY COMMENT SLIGHT INCREASED; SEGMENTED NEUTROPHILS % 93 % (40-70)
[2018-01-27] MEDS: NOREPINEPHRINE 4MG/NS 250ML 250 ML IV PRN (03:23)
[2018-01-27] MEDS: HEPARIN 25000 UNITS/250 ML D5W 250 ML IV SCH ×2 (05:32→19:32)
[2018-01-27] MEDS: INSULIN HUMULIN R 100 UNIT/ML 3ML SQ SCH ×4 (07:44→21:00)
[2018-01-27] MEDS: ASPIRIN 81MG TAB.CHEW PO SCH (08:55)
[2018-01-27] MEDS: FERROUS SULFATE 325 MG TABLET.DR PO SCH ×3 (08:55→21:00)
[2018-01-27] MEDS: VANCOMYCIN 1.25 GM in SODIUM CHLORIDE 0.9% 250 ML IV SCH (08:55)
[2018-01-27] MEDS: INSULIN GLARGINE 100 UNITS/ML 10 ML VIAL SQ SCH (09:02)
[2018-01-27] MEDS ORDERED: AMIODARONE HCL 200 MG TABLET PO SCH (10:30)
[2018-01-27] MEDS ORDERED: CEFAZOLIN 2GM / 50 ML 50 ML IV SCH (15:15)
[2018-01-27] MEDS: CEFAZOLIN SODIUM 1 GM VIAL IVP SCH ×2 (16:49→23:35)
[2018-01-27] MEDS: RIFAMPIN 300 MG CAPSULE PO SCH (16:49)
[2018-01-28] VITALS (24 sets, daily range): BP systolic 83–139; BP diastolic 42–97
[2018-01-28] MEDS: SODIUM CHLORIDE 0.9% 1000ML 1,000 ML IV SCH ×2 (01:00→10:39)
[2018-01-28 03:59] LABS: BASOPHILS % (AUTO) 0.1 % (0.0-5.0); HEMATOCRIT 25.5 % (42-54); LYMPHOCYTES % (AUTO) 5.1 % (21.0-51.0); MEAN CORPUSCULAR HEMOGLOBIN 27.8 pg (27.0-33.0); MEAN CORPUSCULAR HGB CONC 32.9 g/dL (32.0-36.0); MEAN CORPUSCULAR VOLUME 84.6 fL (79-99); MONOCYTES % (AUTO) 3.1 % (3.0-13.0); NEUTROPHILS % (AUTO) 91.7 % (40.0-77.0); PLATELET COUNT (AUTO) 385 K/uL (130-400); RED BLOOD CELL COUNT(AUTO) 3.02 MIL/uL (4.50-6.20); RED CELL DISTRIBUTION WIDTH 16.3 % (11.0-15.5); WHITE BLOOD COUNT (AUTO) 16.1 K/uL (4.8-10.8)
[2018-01-28 04:08] LABS: INR 1.59 (0.85-1.15); PARTIAL THROMBOPLASTIN TIME 73.1 SEC (26.3-35.5); PROTHROMBIN TIME 16.5 SEC (9.6-11.6)
[2018-01-28 04:10] LABS: CREATININE 0.9 mg/dL (0.5-1.5)
[2018-01-28] MEDS: IPRATROPIUM/ALBUTEROL SULFATE 3 ML SOLUTION IH SCH ×4 (06:48→23:24)
[2018-01-28] MEDS: INSULIN HUMULIN R 100 UNIT/ML 3ML SQ SCH ×4 (06:54→20:52)
[2018-01-28] MEDS: FERROUS SULFATE 325 MG TABLET.DR PO SCH ×3 (09:00→21:26)
[2018-01-28] MEDS: ASPIRIN 81MG TAB.CHEW PO SCH (09:23)
[2018-01-28] MEDS: RIFAMPIN 300 MG CAPSULE PO SCH (09:23)
[2018-01-28] MEDS: AMIODARONE HCL 200 MG TABLET PO SCH (09:24)
[2018-01-28] MEDS: CEFAZOLIN SODIUM 1 GM VIAL IVP SCH ×2 (09:24→16:33)
[2018-01-28] MEDS: INSULIN GLARGINE 100 UNITS/ML 10 ML VIAL SQ SCH (09:25)
[2018-01-28 09:51] LABS: ABG BASE EXCESS 1.5 mmol/L (-2.0-3.0); ABG HCO3 23.8 mmol/L (21.0-28.0); ABG OXYGEN SATURATION 99.1 % (95.0-99.0); ABG PCO2 32 mmHg (35-48)
[2018-01-28 10:25] LABS: INR 1.57 (0.85-1.15); PARTIAL THROMBOPLASTIN TIME 57.5 SEC (26.3-35.5); PROTHROMBIN TIME 16.3 SEC (9.6-11.6)
[2018-01-28] MEDS: HEPARIN 25000 UNITS/250 ML D5W 250 ML IV SCH (12:36)
[2018-01-28] MEDS ORDERED: IOPAMIDOL-370 100 ML VIAL IV ONE (13:15)
[2018-01-28 17:01] LABS: INR 1.51 (0.85-1.15); PARTIAL THROMBOPLASTIN TIME 61.1 SEC (26.3-35.5); PROTHROMBIN TIME 15.7 SEC (9.6-11.6)
[2018-01-28] MEDS: ALBUMIN (HUMAN) 25% 100 ML IV SCH ×2 (17:06→21:44)
[2018-01-28] MEDS ORDERED: FAMOTIDINE/PF 20 MG/2 ML VIAL IV SCH (21:00)
[2018-01-28] MEDS: PANTOPRAZOLE 40 MG/VIAL IVP SCH (21:26)
[2018-01-29] VITALS (26 sets, daily range): BP systolic 84–124; BP diastolic 53–76
[2018-01-29] MEDS: CEFAZOLIN SODIUM 1 GM VIAL IVP SCH ×4 (01:04→23:41)
[2018-01-29] MEDS: SODIUM CHLORIDE 0.9% 1000ML 1,000 ML IV SCH (03:34)
[2018-01-29] MEDS: ALBUMIN (HUMAN) 25% 100 ML IV SCH ×5 (03:34→22:35)
[2018-01-29] MEDS: HEPARIN 25000 UNITS/250 ML D5W 250 ML IV SCH ×2 (03:35→20:30)
[2018-01-29 04:14] LABS: ABG BASE EXCESS -0.4 mmol/L (-2.0-3.0); ABG HCO3 22.8 mmol/L (21.0-28.0); ABG OXYGEN SATURATION 98.9 % (95.0-99.0); ABG PCO2 34 mmHg (35-48)
[2018-01-29 05:55] LABS: HEMATOCRIT 22.8 % (42-54); MEAN CORPUSCULAR HEMOGLOBIN 28.9 pg (27.0-33.0); MEAN CORPUSCULAR HGB CONC 33.9 g/dL (32.0-36.0); MEAN CORPUSCULAR VOLUME 85.2 fL (79-99); NUCLEATED RED BLOOD CELLS 0.1 % (0.0-0.19); PLATELET COUNT (AUTO) 314 K/uL (130-400); RED BLOOD CELL COUNT(AUTO) 2.68 MIL/uL (4.50-6.20); RED CELL DISTRIBUTION WIDTH 16.9 % (11.0-15.5); WHITE BLOOD COUNT (AUTO) 10.1 K/uL (4.8-10.8)
[2018-01-29 06:07] LABS: INR 1.45 (0.85-1.15); PARTIAL THROMBOPLASTIN TIME 68.5 SEC (26.3-35.5); PROTHROMBIN TIME 15.1 SEC (9.6-11.6)
[2018-01-29 06:11] LABS: ALBUMIN 2.4 g/dL (3.5-5.0); BILIRUBIN,TOTAL 2.3 mg/dL (0.2-1.0); CREATININE 0.8 mg/dL (0.5-1.5); MAGNESIUM 1.9 mg/dL (1.80-2.40); PHOSPHORUS 2.9 mg/dL (2.5-4.9); POTASSIUM 3.5 mmol/L (3.5-5.1); TOTAL PROTEIN, SERUM 7.1 g/dL (6.0-8.3)
[2018-01-29 06:18] LABS: B-TYPE NATRIURETIC PEPTIDE 4360 pg/mL (0-100)
[2018-01-29] MEDS: INSULIN HUMULIN R 100 UNIT/ML 3ML SQ SCH ×4 (06:21→23:41)
[2018-01-29] MEDS: IPRATROPIUM/ALBUTEROL SULFATE 3 ML SOLUTION IH SCH ×4 (06:54→23:08)
[2018-01-29] MEDS ORDERED: PANTOPRAZOLE SODIUM 40 MG TABLET.DR PO SCH (09:00)
[2018-01-29] MEDS: INSULIN GLARGINE 100 UNITS/ML 10 ML VIAL SQ SCH (09:00)
[2018-01-29] MEDS: ASPIRIN 81MG TAB.CHEW PO SCH (09:40)
[2018-01-29] MEDS: RIFAMPIN 300 MG CAPSULE PO SCH (09:40)
[2018-01-29] MEDS: AMIODARONE HCL 200 MG TABLET PO SCH (09:40)
[2018-01-29] MEDS: FERROUS SULFATE 325 MG TABLET.DR PO SCH ×3 (09:40→20:24)
[2018-01-29] MEDS ORDERED: FUROSEMIDE 10 MG/ML 10ML VIAL ONE (13:45)
[2018-01-29] MEDS: POTASSIUM CHLORIDE 20MEQ/100ML 100 ML IV PRN (20:23)
[2018-01-29] MEDS: PANTOPRAZOLE 40 MG/VIAL IVP SCH (20:23)
[2018-01-29] MEDS: FUROSEMIDE 10 MG/ML 2ML VIAL IV SCH (20:24)
[2018-01-29] MEDS ORDERED: FUROSEMIDE 10 MG/ML 2ML VIAL IV SCH (21:00)
[2018-01-30] VITALS (25 sets, daily range): BP systolic 85–188; BP diastolic 47–83
[2018-01-30 03:54] LABS: BASOPHILS % (AUTO) 0.1 % (0.0-5.0); EOSINOPHILS % (AUTO) 0.1 % (0.0-8.0); HEMATOCRIT 24.8 % (42-54); LYMPHOCYTES % (AUTO) 9.5 % (21.0-51.0); MEAN CORPUSCULAR VOLUME 84.9 fL (79-99); MONOCYTES % (AUTO) 5.8 % (3.0-13.0); NEUTROPHILS % (AUTO) 84.5 % (40.0-77.0); NUCLEATED RED BLOOD CELLS 0.1 % (0.0-0.19); PLATELET COUNT (AUTO) 335 K/uL (130-400); RED BLOOD CELL COUNT(AUTO) 2.92 MIL/uL (4.50-6.20); RED CELL DISTRIBUTION WIDTH 16.8 % (11.0-15.5)
[2018-01-30 04:06] LABS: CREATININE 1.1 mg/dL (0.5-1.5); MAGNESIUM 1.8 mg/dL (1.80-2.40); PHOSPHORUS 2.5 mg/dL (2.5-4.9); POTASSIUM 3.1 mmol/L (3.5-5.1)
[2018-01-30] MEDS: ALBUMIN (HUMAN) 25% 100 ML IV SCH ×2 (04:18→08:23)
[2018-01-30] MEDS: POTASSIUM CHLORIDE 20MEQ/100ML 100 ML IV PRN ×2 (04:29→06:35)
[2018-01-30] MEDS: MAGNESIUM 2GM PREMIX 50ML 50 ML IV PRN (05:37)
[2018-01-30] MEDS: INSULIN HUMULIN R 100 UNIT/ML 3ML SQ SCH ×4 (05:53→20:58)
[2018-01-30] MEDS: IPRATROPIUM/ALBUTEROL SULFATE 3 ML SOLUTION IH SCH ×3 (06:09→19:06)
[2018-01-30] MEDS: FUROSEMIDE 10 MG/ML 2ML VIAL IV SCH ×2 (08:23→21:07)
[2018-01-30] MEDS: AMIODARONE HCL 200 MG TABLET PO SCH (08:24)
[2018-01-30] MEDS: CEFAZOLIN SODIUM 1 GM VIAL IVP SCH ×3 (08:24→23:33)
[2018-01-30] MEDS: ASPIRIN 81MG TAB.CHEW PO SCH (08:24)
[2018-01-30] MEDS: FERROUS SULFATE 325 MG TABLET.DR PO SCH ×3 (08:24→20:58)
[2018-01-30] MEDS: INSULIN GLARGINE 100 UNITS/ML 10 ML VIAL SQ SCH (08:25)
[2018-01-30] MEDS: RIFAMPIN 300 MG CAPSULE PO SCH (11:23)
[2018-01-30] MEDS ORDERED: PHARMACY COMMUNICATION MISC SCH (11:30)
[2018-01-30] MEDS ORDERED: GENTAMICIN PROTOCOL PER PHARMACY IV SCH (13:30)
[2018-01-30] MEDS ORDERED: GENTAMICIN IV SCH (13:45)
[2018-01-30] MEDS ORDERED: [UNRECOGNIZED DRUG - OTHER] IV SCH (13:45)
[2018-01-30] MEDS ORDERED: FUROSEMIDE 10 MG/ML 4ML VIAL IV ONE (14:45)
[2018-01-30] MEDS: LORAZEPAM 2 MG/ML 1 ML VIAL IVP PRN (15:37)
[2018-01-30] MEDS: HEPARIN 25000 UNITS/250 ML D5W 250 ML IV SCH (16:00)
[2018-01-30 16:35] LABS: MAGNESIUM 2.1 mg/dL (1.80-2.40); POTASSIUM 4.5 mmol/L (3.5-5.1)
[2018-01-30] MEDS: POTASSIUM CHLORIDE 20 MEQ ERTAB PO SCH (17:50)
[2018-01-30] MEDS: NS IV SCH (20:56)
[2018-01-30] MEDS: GENTAMICIN IV SCH (20:56)
[2018-01-30] MEDS: PANTOPRAZOLE 40 MG/VIAL IVP SCH (20:58)
[2018-01-31] VITALS (25 sets, daily range): BP systolic 91–139; BP diastolic 47–76
[2018-01-31] MEDS: IPRATROPIUM/ALBUTEROL SULFATE 3 ML SOLUTION IH SCH ×4 (00:26→18:58)
[2018-01-31] MEDS: NS IV SCH ×3 (03:35→22:19)
[2018-01-31] MEDS: GENTAMICIN IV SCH ×3 (03:35→22:19)
[2018-01-31 03:51] LABS: HEMATOCRIT 22.8 % (42-54); MEAN CORPUSCULAR HEMOGLOBIN 29.1 pg (27.0-33.0); MEAN CORPUSCULAR VOLUME 85.4 fL (79-99); NUCLEATED RED BLOOD CELLS 0.1 % (0.0-0.19); PLATELET COUNT (AUTO) 237 K/uL (130-400); RED BLOOD CELL COUNT(AUTO) 2.67 MIL/uL (4.50-6.20); WHITE BLOOD COUNT (AUTO) 11.9 K/uL (4.8-10.8)
[2018-01-31 03:59] LABS: CREATININE 1.5 mg/dL (0.5-1.5); POTASSIUM 4.2 mmol/L (3.5-5.1)
[2018-01-31] MEDS: FUROSEMIDE 10 MG/ML 2ML VIAL IV SCH ×3 (06:03→22:19)
[2018-01-31] MEDS: INSULIN HUMULIN R 100 UNIT/ML 3ML SQ SCH ×4 (06:05→21:00)
[2018-01-31] MEDS: AMIODARONE HCL 200 MG TABLET PO SCH (07:58)
[2018-01-31] MEDS: POTASSIUM CHLORIDE 20 MEQ ERTAB PO SCH ×2 (07:59→16:47)
[2018-01-31] MEDS: CEFAZOLIN SODIUM 1 GM VIAL IVP SCH ×2 (07:59→16:46)
[2018-01-31] MEDS: ASPIRIN 81MG TAB.CHEW PO SCH (07:59)
[2018-01-31] MEDS: FERROUS SULFATE 325 MG TABLET.DR PO SCH ×3 (08:02→20:43)
[2018-01-31] MEDS: INSULIN GLARGINE 100 UNITS/ML 10 ML VIAL SQ SCH (08:03)
[2018-01-31] MEDS: LORAZEPAM 2 MG/ML 1 ML VIAL IVP PRN (09:49)
[2018-01-31] MEDS: RIFAMPIN 300 MG CAPSULE PO SCH (09:49)
[2018-01-31] MEDS: ACETYLCYSTEINE 20% 200MG/ML 4ML VIAL IH SCH ×2 (12:06→18:58)
[2018-01-31] MEDS: HEPARIN 25000 UNITS/250 ML D5W 250 ML IV SCH (12:21)
[2018-01-31] MEDS: PANTOPRAZOLE 40 MG/VIAL IVP SCH (20:42)
[2018-01-31] MEDS: QUETIAPINE FUMARATE 25 MG TAB PO SCH (20:42)
[2018-02-01] VITALS (23 sets, daily range): BP systolic 85–122; BP diastolic 43–81
[2018-02-01] MEDS: CEFAZOLIN SODIUM 1 GM VIAL IVP SCH ×3 (00:03→16:49)
[2018-02-01] MEDS: ACETYLCYSTEINE 20% 200MG/ML 4ML VIAL IH SCH ×5 (00:08→23:28)
[2018-02-01] MEDS: IPRATROPIUM/ALBUTEROL SULFATE 3 ML SOLUTION IH SCH ×5 (00:08→23:28)
[2018-02-01] MEDS: FUROSEMIDE 10 MG/ML 2ML VIAL IV SCH (05:48)
[2018-02-01 06:00] LABS: HEMATOCRIT 24.4 % (42-54); PLATELET COUNT (AUTO) 230 K/uL (130-400); RED BLOOD CELL COUNT(AUTO) 2.87 MIL/uL (4.50-6.20); RED CELL DISTRIBUTION WIDTH 17.1 % (11.0-15.5); WHITE BLOOD COUNT (AUTO) 11.5 K/uL (4.8-10.8)
[2018-02-01] MEDS: INSULIN HUMULIN R 100 UNIT/ML 3ML SQ SCH ×4 (06:00→21:20)
[2018-02-01 06:16] LABS: CREATININE 1.5 mg/dL (0.5-1.5); MAGNESIUM 1.8 mg/dL (1.80-2.40); POTASSIUM 3.5 mmol/L (3.5-5.1)
[2018-02-01] MEDS: ASPIRIN 81MG TAB.CHEW PO SCH (07:53)
[2018-02-01] MEDS: AMIODARONE HCL 200 MG TABLET PO SCH (07:53)
[2018-02-01] MEDS: MAGNESIUM 2GM PREMIX 50ML 50 ML IV PRN (07:53)
[2018-02-01] MEDS: FERROUS SULFATE 325 MG TABLET.DR PO SCH ×2 (07:53→12:27)
[2018-02-01] MEDS: POTASSIUM CHLORIDE 20MEQ/100ML 100 ML IV PRN (07:55)
[2018-02-01] MEDS: POTASSIUM CHLORIDE 20 MEQ ERTAB PO SCH ×2 (07:56→16:50)
[2018-02-01] MEDS: INSULIN GLARGINE 100 UNITS/ML 10 ML VIAL SQ SCH (07:57)
[2018-02-01] MEDS: NS IV SCH (11:06)
[2018-02-01] MEDS: GENTAMICIN IV SCH (11:06)
[2018-02-01] MEDS: RIFAMPIN 300 MG CAPSULE PO SCH (11:06)
[2018-02-01] MEDS ORDERED: SODIUM CHLORIDE 0.9% 500ML 500 ML IV ONE ×2 (12:26→14:15)
[2018-02-01] MEDS: HEPARIN 25000 UNITS/250 ML D5W 250 ML IV SCH (12:32)
[2018-02-01] MEDS: QUETIAPINE FUMARATE 25 MG TAB PO SCH (20:55)
[2018-02-01] MEDS: PANTOPRAZOLE 40 MG/VIAL IVP SCH (20:55)
[2018-02-01] MEDS ORDERED: PHARMACY COMMUNICATION MISC SCH (21:00)
[2018-02-02] VITALS (28 sets, daily range): BP systolic 80–134; BP diastolic 40–76
[2018-02-02 05:21] LABS: BASOPHILS % (AUTO) 0.3 % (0.0-5.0); EOSINOPHILS % (AUTO) 0.6 % (0.0-8.0); HEMATOCRIT 25.2 % (42-54); MEAN CORPUSCULAR HEMOGLOBIN 29.3 pg (27.0-33.0); MEAN CORPUSCULAR HGB CONC 34.3 g/dL (32.0-36.0); MEAN CORPUSCULAR VOLUME 85.5 fL (79-99); MONOCYTES % (AUTO) 5.2 % (3.0-13.0); NEUTROPHILS % (AUTO) 85.9 % (40.0-77.0); PLATELET COUNT (AUTO) 226 K/uL (130-400); RED BLOOD CELL COUNT(AUTO) 2.95 MIL/uL (4.50-6.20); RED CELL DISTRIBUTION WIDTH 17.3 % (11.0-15.5)
[2018-02-02 05:33] LABS: CREATININE 1.3 mg/dL (0.5-1.5); GENTAMICIN,RANDOM 1.1 mcg/mL (0.2-2.0); POTASSIUM 3.6 mmol/L (3.5-5.1)
[2018-02-02] MEDS: ACETYLCYSTEINE 20% 200MG/ML 4ML VIAL IH SCH ×4 (06:15→23:34)
[2018-02-02] MEDS: IPRATROPIUM/ALBUTEROL SULFATE 3 ML SOLUTION IH SCH ×2 (06:15→18:00)
[2018-02-02] MEDS: INSULIN HUMULIN R 100 UNIT/ML 3ML SQ SCH ×4 (06:48→18:30)
[2018-02-02] MEDS: CEFAZOLIN SODIUM 1 GM VIAL IVP SCH ×3 (08:56→17:36)
[2018-02-02] MEDS: MIDODRINE HCL 5 MG TABLET PO SCH ×3 (08:57→20:50)
[2018-02-02] MEDS: AMIODARONE HCL 200 MG TABLET PO SCH (08:57)
[2018-02-02] MEDS: FERROUS SULFATE 300 MG/5 ML LIQ UDCUP PO SCH ×3 (08:57→20:51)
[2018-02-02] MEDS: ASPIRIN 81MG TAB.CHEW PO SCH (08:58)
[2018-02-02] MEDS: INSULIN GLARGINE 100 UNITS/ML 10 ML VIAL SQ SCH (08:59)
[2018-02-02] MEDS: RIFAMPIN 300 MG CAPSULE PO SCH (09:05)
[2018-02-02] MEDS: NOREPINEPHRINE 4MG/NS 250ML 250 ML IV SCH (09:30)
[2018-02-02] MEDS: GENTAMICIN SULFATE 120 MG in SODIUM CHLORIDE 0.9% 100 ML IV SCH (09:31)
[2018-02-02] MEDS ORDERED: SODIUM CHLORIDE 0.9% 500ML 500 ML IV ONE (09:33)
[2018-02-02] MEDS: IPRATROPIUM 0.5 MG/2.5 ML INH IH SCH ×3 (11:15→23:34)
[2018-02-02] MEDS ORDERED: LORAZEPAM 2 MG/ML 1 ML VIAL ONE (11:43)
[2018-02-02] MEDS ORDERED: LORAZEPAM 2 MG/ML 1 ML VIAL IVP ONE (12:40)
[2018-02-02] MEDS ORDERED: LACTULOSE 20 GM/30 ML UDCUP PO PRN (14:45)
[2018-02-02] MEDS: ACETYLCYSTEINE 10% 100MG/ML 4ML VIAL IH SCH (18:00)
[2018-02-02] MEDS ORDERED: ACETAMINOPHEN ELIXIR 650 MG/20.3 ML UDCUP ONE (18:27)
[2018-02-02] MEDS ORDERED: ACETAMINOPHEN ELIXIR 650 MG/20.3 ML UDCUP PEG PRN (18:30)
[2018-02-02] MEDS ORDERED: MORPHINE SULFATE 2 MG/ML 1ML SYG IVP PRN (19:30)
[2018-02-02] MEDS: PANTOPRAZOLE 40 MG/VIAL IVP SCH (20:50)
[2018-02-02] MEDS: QUETIAPINE FUMARATE 25 MG TAB PO SCH (20:51)
[2018-02-02] MEDS: HYDROCODONE/ACETAMINOPHEN 5/325 MG TAB PO PRN (22:06)
[2018-02-03] VITALS (24 sets, daily range): BP systolic 88–127; BP diastolic 56–74
[2018-02-03] MEDS: CEFAZOLIN SODIUM 1 GM VIAL IVP SCH ×3 (00:08→16:34)
[2018-02-03 03:19] LABS: HEMATOCRIT 26.6 % (42-54); MEAN CORPUSCULAR HEMOGLOBIN 27.7 pg (27.0-33.0); MEAN CORPUSCULAR HGB CONC 32.1 g/dL (32.0-36.0); MEAN CORPUSCULAR VOLUME 86.3 fL (79-99); NUCLEATED RED BLOOD CELLS 0.1 % (0.0-0.19); PLATELET COUNT (AUTO) 195 K/uL (130-400); RED BLOOD CELL COUNT(AUTO) 3.08 MIL/uL (4.50-6.20); RED CELL DISTRIBUTION WIDTH 17.7 % (11.0-15.5); WHITE BLOOD COUNT (AUTO) 11.7 K/uL (4.8-10.8)
[2018-02-03 03:48] LABS: CREATININE 1.3 mg/dL (0.5-1.5); PHOSPHORUS 2.3 mg/dL (2.5-4.9); POTASSIUM 3.7 mmol/L (3.5-5.1)
[2018-02-03] MEDS: INSULIN HUMULIN R 100 UNIT/ML 3ML SQ SCH ×4 (06:04→18:00)
[2018-02-03] MEDS: IPRATROPIUM 0.5 MG/2.5 ML INH IH SCH ×4 (06:21→23:08)
[2018-02-03] MEDS: ACETYLCYSTEINE 10% 100MG/ML 4ML VIAL IH SCH ×5 (06:22→23:09)
[2018-02-03] MEDS: ASPIRIN 81MG TAB.CHEW PO SCH (07:44)
[2018-02-03] MEDS: INSULIN GLARGINE 100 UNITS/ML 10 ML VIAL SQ SCH (07:46)
[2018-02-03] MEDS: RIFAMPIN 300 MG CAPSULE PO SCH (07:48)
[2018-02-03] MEDS: AMIODARONE HCL 200 MG TABLET PO SCH (07:48)
[2018-02-03] MEDS: MIDODRINE HCL 5 MG TABLET PO SCH ×3 (07:52→20:13)
[2018-02-03] MEDS: FERROUS SULFATE 300 MG/5 ML LIQ UDCUP PO SCH ×3 (07:52→20:13)
[2018-02-03] MEDS: GENTAMICIN SULFATE 120 MG in SODIUM CHLORIDE 0.9% 100 ML IV SCH (09:12)
[2018-02-03] MEDS: NOREPINEPHRINE 4MG/NS 250ML 250 ML IV PRN (12:57)
[2018-02-03] MEDS: PANTOPRAZOLE 40 MG/VIAL IVP SCH (20:10)
[2018-02-03] MEDS: FUROSEMIDE 10 MG/ML 2ML VIAL IV SCH (20:12)
[2018-02-03] MEDS: QUETIAPINE FUMARATE 25 MG TAB PO SCH (20:13)
[2018-02-04] VITALS (24 sets, daily range): BP systolic 88–113; BP diastolic 51–79
[2018-02-04] MEDS: INSULIN HUMULIN R 100 UNIT/ML 3ML SQ SCH ×5 (00:18→20:21)
[2018-02-04] MEDS: CEFAZOLIN SODIUM 1 GM VIAL IVP SCH ×4 (00:19→23:06)
[2018-02-04 04:05] LABS: BASOPHILS % (AUTO) 0.7 % (0.0-5.0); EOSINOPHILS % (AUTO) 0.8 % (0.0-8.0); HEMATOCRIT 26.6 % (42-54); MEAN CORPUSCULAR HGB CONC 33.9 g/dL (32.0-36.0); MEAN CORPUSCULAR VOLUME 88.4 fL (79-99); MONOCYTES % (AUTO) 5.3 % (3.0-13.0); NEUTROPHILS % (AUTO) 84.2 % (40.0-77.0); PLATELET COUNT (AUTO) 177 K/uL (130-400); RED BLOOD CELL COUNT(AUTO) 3.01 MIL/uL (4.50-6.20); RED CELL DISTRIBUTION WIDTH 17.9 % (11.0-15.5)
[2018-02-04 04:11] LABS: CREATININE 1.5 mg/dL (0.5-1.5); MAGNESIUM 2.1 mg/dL (1.80-2.40); PHOSPHORUS 1.9 mg/dL (2.5-4.9); POTASSIUM 3.4 mmol/L (3.5-5.1)
[2018-02-04] MEDS: POTASSIUM CHLORIDE 10% ELIXIR 20 MEQ/15 ML UDCUP PO PRN ×2 (04:25→05:59)
[2018-02-04] MEDS: ACETYLCYSTEINE 10% 100MG/ML 4ML VIAL IH SCH ×3 (06:31→18:13)
[2018-02-04] MEDS: IPRATROPIUM 0.5 MG/2.5 ML INH IH SCH ×3 (06:32→18:13)
[2018-02-04] MEDS: MIDODRINE HCL 5 MG TABLET PO SCH ×3 (08:18→19:46)
[2018-02-04] MEDS: AMIODARONE HCL 200 MG TABLET PO SCH (08:19)
[2018-02-04] MEDS: ASPIRIN 81MG TAB.CHEW PO SCH (08:19)
[2018-02-04] MEDS: FERROUS SULFATE 300 MG/5 ML LIQ UDCUP PO SCH ×3 (08:19→19:46)
[2018-02-04] MEDS: FUROSEMIDE 10 MG/ML 2ML VIAL IV SCH ×2 (08:19→19:47)
[2018-02-04] MEDS: INSULIN GLARGINE 100 UNITS/ML 10 ML VIAL SQ SCH (08:21)
[2018-02-04] MEDS: RIFAMPIN 300 MG CAPSULE PO SCH (08:31)
[2018-02-04] MEDS: HYDROCODONE/ACETAMINOPHEN 5/325 MG TAB PO PRN ×2 (11:08→21:24)
[2018-02-04] MEDS: QUETIAPINE FUMARATE 25 MG TAB PO SCH (19:46)
[2018-02-04] MEDS: PANTOPRAZOLE 40 MG/VIAL IVP SCH (19:47)
[2018-02-04] MEDS: NOREPINEPHRINE 4MG/NS 250ML 250 ML IV SCH (20:31)
[2018-02-05] VITALS (35 sets, daily range): BP systolic 82–118; BP diastolic 40–81
[2018-02-05] MEDS: IPRATROPIUM 0.5 MG/2.5 ML INH IH SCH ×5 (00:06→23:22)
[2018-02-05] MEDS: ACETYLCYSTEINE 10% 100MG/ML 4ML VIAL IH SCH ×5 (00:07→23:23)
[2018-02-05] MEDS: HYDROCODONE/ACETAMINOPHEN 5/325 MG TAB PO PRN ×2 (03:05→12:31)
[2018-02-05 03:51] LABS: MEAN CORPUSCULAR HEMOGLOBIN 28.3 pg (27.0-33.0); MEAN CORPUSCULAR HGB CONC 32.3 g/dL (32.0-36.0); MEAN CORPUSCULAR VOLUME 87.6 fL (79-99); PLATELET COUNT (AUTO) 160 K/uL (130-400); RED BLOOD CELL COUNT(AUTO) 3.08 MIL/uL (4.50-6.20); RED CELL DISTRIBUTION WIDTH 18.6 % (11.0-15.5); WHITE BLOOD COUNT (AUTO) 11.8 K/uL (4.8-10.8)
[2018-02-05 04:00] LABS: LYMPHOCYTES % (MANUAL) 7 % (22-44); MAN.DIFF COMMENT-IMPRESSION MANUAL DIFFERENTIAL; MONOCYTES % (MANUAL) 9 % (2-9); PLATELET MORPHOLOGY COMMENT ADEQUATE; SEGMENTED NEUTROPHILS % 84 % (40-70)
[2018-02-05 04:02] LABS: ALBUMIN 1.7 g/dL (3.5-5.0); BILIRUBIN,TOTAL 1.5 mg/dL (0.2-1.0); CREATININE 1.8 mg/dL (0.5-1.5); PHOSPHORUS 2.5 mg/dL (2.5-4.9); POTASSIUM 3.7 mmol/L (3.5-5.1); TOTAL PROTEIN, SERUM 6.6 g/dL (6.0-8.3)
[2018-02-05] MEDS: POTASSIUM CHLORIDE 10% ELIXIR 20 MEQ/15 ML UDCUP PO PRN (04:13)
[2018-02-05] MEDS: INSULIN HUMULIN R 100 UNIT/ML 3ML SQ SCH ×3 (05:41→17:10)
[2018-02-05] MEDS ORDERED: ENOXAPARIN SODIUM 1 MG/KG SQ SCH (09:00)
[2018-02-05] MEDS: ENOXAPARIN SODIUM 80 MG/0.8 ML SQ SCH (12:17)
[2018-02-05] MEDS: CEFAZOLIN SODIUM 1 GM VIAL IVP SCH ×2 (12:17→16:09)
[2018-02-05] MEDS: AMIODARONE HCL 200 MG TABLET PO SCH (12:18)
[2018-02-05] MEDS: FUROSEMIDE 10 MG/ML 2ML VIAL IV SCH ×2 (12:18→21:18)
[2018-02-05] MEDS: THIAMINE HCL 100 MG/ML 2ML VIAL IVP SCH (12:18)
[2018-02-05] MEDS: RIFAMPIN 300 MG CAPSULE PO SCH (12:18)
[2018-02-05] MEDS: ASPIRIN 81MG TAB.CHEW PO SCH (12:18)
[2018-02-05] MEDS: MIDODRINE HCL 5 MG TABLET PO SCH ×3 (12:19→21:18)
[2018-02-05] MEDS: FERROUS SULFATE 300 MG/5 ML LIQ UDCUP PO SCH ×3 (12:19→21:17)
[2018-02-05] MEDS: INSULIN GLARGINE 100 UNITS/ML 10 ML VIAL SQ SCH (12:34)
[2018-02-05] MEDS: PANTOPRAZOLE 40 MG/VIAL IVP SCH (21:18)
[2018-02-06] VITALS (19 sets, daily range): BP systolic 84–126; BP diastolic 47–78
[2018-02-06] MEDS: CEFAZOLIN SODIUM 1 GM VIAL IVP SCH ×3 (00:13→15:02)
[2018-02-06 04:44] LABS: HEMATOCRIT 25.5 % (42-54); MEAN CORPUSCULAR HEMOGLOBIN 29.4 pg (27.0-33.0); MEAN CORPUSCULAR HGB CONC 33.7 g/dL (32.0-36.0); MEAN CORPUSCULAR VOLUME 87.1 fL (79-99); PLATELET COUNT (AUTO) 159 K/uL (130-400); RED BLOOD CELL COUNT(AUTO) 2.93 MIL/uL (4.50-6.20); RED CELL DISTRIBUTION WIDTH 19.1 % (11.0-15.5); WHITE BLOOD COUNT (AUTO) 10.9 K/uL (4.8-10.8)
[2018-02-06 04:56] LABS: CREATININE 2.2 mg/dL (0.5-1.5); POTASSIUM 3.5 mmol/L (3.5-5.1)
[2018-02-06] MEDS: INSULIN HUMULIN R 100 UNIT/ML 3ML SQ SCH ×4 (05:39→17:13)
[2018-02-06] MEDS: IPRATROPIUM 0.5 MG/2.5 ML INH IH SCH ×4 (06:12→23:49)
[2018-02-06] MEDS: ACETYLCYSTEINE 10% 100MG/ML 4ML VIAL IH SCH ×4 (06:12→23:49)
[2018-02-06] MEDS: THIAMINE HCL 100 MG/ML 2ML VIAL IVP SCH (08:38)
[2018-02-06] MEDS: FUROSEMIDE 10 MG/ML 2ML VIAL IV SCH ×2 (08:38→21:34)
[2018-02-06] MEDS: AMIODARONE HCL 200 MG TABLET PO SCH (08:39)
[2018-02-06] MEDS: ENOXAPARIN SODIUM 80 MG/0.8 ML SQ SCH (08:39)
[2018-02-06] MEDS: FERROUS SULFATE 300 MG/5 ML LIQ UDCUP PO SCH ×3 (08:39→21:35)
[2018-02-06] MEDS: TRAMADOL HCL 50 MG TABLET PO PRN ×2 (08:40→21:55)
[2018-02-06] MEDS: ASPIRIN 81MG TAB.CHEW PO SCH (08:40)
[2018-02-06] MEDS: MIDODRINE HCL 5 MG TABLET PO SCH ×3 (08:40→21:35)
[2018-02-06] MEDS: RIFAMPIN 300 MG CAPSULE PO SCH (08:40)
[2018-02-06] MEDS: INSULIN GLARGINE 100 UNITS/ML 10 ML VIAL SQ SCH (08:41)
[2018-02-06] MEDS: FAMOTIDINE/PF 20 MG/2 ML VIAL IV SCH (21:34)
[2018-02-07 03:46] VITALS: BP 108/71
[2018-02-07 04:33] LABS: CREATININE 2.8 mg/dL (0.5-1.5); POTASSIUM 3.2 mmol/L (3.5-5.1)
[2018-02-07] MEDS: CEFAZOLIN SODIUM 1 GM VIAL IVP SCH ×4 (05:53→22:43)
[2018-02-07] MEDS: POTASSIUM CHLORIDE 10% ELIXIR 20 MEQ/15 ML UDCUP PO PRN (05:55)
[2018-02-07] MEDS: IPRATROPIUM 0.5 MG/2.5 ML INH IH SCH ×4 (06:12→23:37)
[2018-02-07] MEDS: ACETYLCYSTEINE 10% 100MG/ML 4ML VIAL IH SCH ×4 (06:12→23:38)
[2018-02-07] MEDS: INSULIN HUMULIN R 100 UNIT/ML 3ML SQ SCH ×4 (06:47→21:00)
[2018-02-07 07:00] VITALS: BP 95/49
[2018-02-07] MEDS: MIDODRINE HCL 5 MG TABLET PO SCH ×3 (08:53→22:45)
[2018-02-07] MEDS: FUROSEMIDE 10 MG/ML 2ML VIAL IV SCH ×2 (08:54→22:44)
[2018-02-07] MEDS: ASPIRIN 81MG TAB.CHEW PO SCH (08:54)
[2018-02-07] MEDS: AMIODARONE HCL 200 MG TABLET PO SCH (08:54)
[2018-02-07] MEDS: FERROUS SULFATE 300 MG/5 ML LIQ UDCUP PO SCH ×3 (08:54→22:44)
[2018-02-07] MEDS: RIFAMPIN 300 MG CAPSULE PO SCH (08:54)
[2018-02-07] MEDS: THIAMINE HCL 100 MG/ML 2ML VIAL IVP SCH (08:55)
[2018-02-07] MEDS: ENOXAPARIN SODIUM 80 MG/0.8 ML SQ SCH (08:57)
[2018-02-07 11:00] VITALS: BP_SYST 116; BP_DIAS 57; BP_DIAS 79
[2018-02-07] MEDS: INSULIN GLARGINE 100 UNITS/ML 10 ML VIAL SQ SCH (14:17)
[2018-02-07 16:00] VITALS: BP 106/52
[2018-02-07 19:54] VITALS: BP 141/74
[2018-02-07] MEDS: FAMOTIDINE/PF 20 MG/2 ML VIAL IV SCH (22:44)
[2018-02-07 23:29] VITALS: BP 110/65
[2018-02-08 03:55] VITALS: BP 101/61
[2018-02-08] MEDS: ACETYLCYSTEINE 10% 100MG/ML 4ML VIAL IH SCH ×3 (05:41→22:59)
[2018-02-08] MEDS: IPRATROPIUM 0.5 MG/2.5 ML INH IH SCH ×3 (05:41→22:59)
[2018-02-08 05:58] LABS: HEMATOCRIT 23.9 % (42-54); MEAN CORPUSCULAR HEMOGLOBIN 29.9 pg (27.0-33.0); MEAN CORPUSCULAR HGB CONC 34.6 g/dL (32.0-36.0); MEAN CORPUSCULAR VOLUME 86.5 fL (79-99); PLATELET COUNT (AUTO) 170 K/uL (130-400); RED BLOOD CELL COUNT(AUTO) 2.76 MIL/uL (4.50-6.20); RED CELL DISTRIBUTION WIDTH 19.5 % (11.0-15.5); WHITE BLOOD COUNT (AUTO) 8.8 K/uL (4.8-10.8)
[2018-02-08 06:01] LABS: POTASSIUM 3.2 mmol/L (3.5-5.1)
[2018-02-08] MEDS: INSULIN HUMULIN R 100 UNIT/ML 3ML SQ SCH ×4 (06:39→21:00)
[2018-02-08 08:06] VITALS: BP 98/57
[2018-02-08] MEDS: THIAMINE HCL 100 MG/ML 2ML VIAL IVP SCH (09:00)
[2018-02-08] MEDS: CEFAZOLIN SODIUM 1 GM VIAL IVP SCH ×2 (09:00→16:16)
[2018-02-08] MEDS: FUROSEMIDE 10 MG/ML 2ML VIAL IV SCH ×2 (09:01→21:35)
[2018-02-08] MEDS: FERROUS SULFATE 300 MG/5 ML LIQ UDCUP PO SCH ×3 (09:02→21:35)
[2018-02-08] MEDS: ASPIRIN 81MG TAB.CHEW PO SCH (09:02)
[2018-02-08] MEDS: RIFAMPIN 300 MG CAPSULE PO SCH (09:02)
[2018-02-08] MEDS: AMIODARONE HCL 200 MG TABLET PO SCH (09:02)
[2018-02-08] MEDS: MIDODRINE HCL 5 MG TABLET PO SCH ×3 (09:02→21:35)
[2018-02-08] MEDS: ENOXAPARIN SODIUM 80 MG/0.8 ML SQ SCH (09:03)
[2018-02-08] MEDS: SODIUM CHLORIDE 0.9% 1000ML 1,000 ML IV SCH (11:07)
[2018-02-08 11:35] VITALS: BP 111/61
[2018-02-08] MEDS: INSULIN GLARGINE 100 UNITS/ML 10 ML VIAL SQ SCH (11:42)
[2018-02-08 16:08] VITALS: BP 101/55
[2018-02-08 20:01] VITALS: BP 96/65
[2018-02-08] MEDS: FAMOTIDINE/PF 20 MG/2 ML VIAL IV SCH (21:34)
[2018-02-08 23:38] VITALS: BP 96/62
[2018-02-09] MEDS: CEFAZOLIN SODIUM 1 GM VIAL IVP SCH ×3 (02:49→16:01)
[2018-02-09 04:00] VITALS: BP 114/67
[2018-02-09 05:12] LABS: BASOPHILS % (AUTO) 0.6 % (0.0-5.0); EOSINOPHILS % (AUTO) 0.7 % (0.0-8.0); HEMATOCRIT 25.5 % (42-54); LYMPHOCYTES % (AUTO) 11.3 % (21.0-51.0); MEAN CORPUSCULAR HEMOGLOBIN 28.6 pg (27.0-33.0); MEAN CORPUSCULAR HGB CONC 33.1 g/dL (32.0-36.0); MEAN CORPUSCULAR VOLUME 86.5 fL (79-99); MONOCYTES % (AUTO) 6.8 % (3.0-13.0); NEUTROPHILS % (AUTO) 80.6 % (40.0-77.0); PLATELET COUNT (AUTO) 181 K/uL (130-400); RED BLOOD CELL COUNT(AUTO) 2.94 MIL/uL (4.50-6.20); RED CELL DISTRIBUTION WIDTH 20.2 % (11.0-15.5); WHITE BLOOD COUNT (AUTO) 8.5 K/uL (4.8-10.8)
[2018-02-09 05:26] LABS: CREATININE 3.1 mg/dL (0.5-1.5); MAGNESIUM 1.9 mg/dL (1.80-2.40); PHOSPHORUS 4.3 mg/dL (2.5-4.9); POTASSIUM 3.1 mmol/L (3.5-5.1)
[2018-02-09] MEDS: IPRATROPIUM 0.5 MG/2.5 ML INH IH SCH ×2 (05:51→11:04)
[2018-02-09] MEDS: ACETYLCYSTEINE 10% 100MG/ML 4ML VIAL IH SCH ×2 (05:51→11:04)
[2018-02-09 07:00] VITALS: BP 102/62
[2018-02-09] MEDS: INSULIN HUMULIN R 100 UNIT/ML 3ML SQ SCH ×3 (07:26→16:30)
[2018-02-09] MEDS: SODIUM CHLORIDE 0.9% 1000ML 1,000 ML IV SCH (08:03)
[2018-02-09] MEDS: THIAMINE HCL 100 MG/ML 2ML VIAL IVP SCH (09:38)
[2018-02-09] MEDS: FUROSEMIDE 10 MG/ML 2ML VIAL IV SCH (09:38)
[2018-02-09] MEDS: RIFAMPIN 300 MG CAPSULE PO SCH (09:39)
[2018-02-09] MEDS: FERROUS SULFATE 300 MG/5 ML LIQ UDCUP PO SCH ×2 (09:39→14:22)
[2018-02-09] MEDS: MIDODRINE HCL 5 MG TABLET PO SCH ×2 (09:39→14:22)
[2018-02-09] MEDS: ASPIRIN 81MG TAB.CHEW PO SCH (09:40)
[2018-02-09] MEDS: AMIODARONE HCL 200 MG TABLET PO SCH (09:40)
[2018-02-09] MEDS: ENOXAPARIN SODIUM 80 MG/0.8 ML SQ SCH (09:41)
[2018-02-09] MEDS: INSULIN GLARGINE 100 UNITS/ML 10 ML VIAL SQ SCH (09:50)
[2018-02-09 11:39] VITALS: BP 98/58
[2018-02-09 16:40] VITALS: BP 93/50
== END 2018-02-09 19:00 | DRG 720 ==
LOC: EDH 23:15 → EDHIP 01-25 02:15 → 3AH 01-25 03:57 → 2BH 01-25 11:18 → 2AH 02-06 16:02
PROVIDERS: ADMIT Family Medicine; ATTEND Family Medicine
PROC: 05HM33Z Insertion of Infusion Device into Right Internal Jugular Vein, Percutaneous Approach (ICD-10-PCS; 2018-01-25)
PROC: B543ZZA Ultrasonography of Right Jugular Veins, Guidance (ICD-10-PCS; 2018-01-25)
PROC: 0W9930Z Drainage of Right Pleural Cavity with Drainage Device, Percutaneous Approach (ICD-10-PCS; principal; 2018-01-26)
PROC: 5A09357 Assistance with Respiratory Ventilation, Less than 24 Consecutive Hours, Continuous Positive Airway Pressure (ICD-10-PCS; 2018-01-28)
PROC: 5A09357 Assistance with Respiratory Ventilation, Less than 24 Consecutive Hours, Continuous Positive Airway Pressure (ICD-10-PCS; 2018-01-29)
PROC: 5A09357 Assistance with Respiratory Ventilation, Less than 24 Consecutive Hours, Continuous Positive Airway Pressure (ICD-10-PCS; 2018-01-30)
PROC: 5A09357 Assistance with Respiratory Ventilation, Less than 24 Consecutive Hours, Continuous Positive Airway Pressure (ICD-10-PCS; 2018-01-31)
PROC: 0DH67UZ Insertion of Feeding Device into Stomach, Via Natural or Artificial Opening (ICD-10-PCS; 2018-01-31)
PROC: 5A09357 Assistance with Respiratory Ventilation, Less than 24 Consecutive Hours, Continuous Positive Airway Pressure (ICD-10-PCS; 2018-02-01)
PROC: 02HV33Z Insertion of Infusion Device into Superior Vena Cava, Percutaneous Approach (ICD-10-PCS; 2018-02-06)
DX: A41.01 Sepsis due to Methicillin susceptible Staphylococcus aureus (principal); J96.01 Acute respiratory failure with hypoxia; R65.21 Severe sepsis with septic shock; J15.20 Pneumonia due to staphylococcus, unspecified; G92 Toxic encephalopathy; E46 Unspecified protein-calorie malnutrition; I47.2 Ventricular tachycardia; J90 Pleural effusion, not elsewhere classified; D62 Acute posthemorrhagic anemia; E11.22 Type 2 diabetes mellitus with diabetic chronic kidney disease; I50.33 Acute on chronic diastolic (congestive) heart failure; J18.9 Pneumonia, unspecified organism; I13.0 Hypertensive heart and chronic kidney disease with heart failure and stage 1 through stage 4 chronic kidney disease, or unspecified chronic kidney disease; A41.02 Sepsis due to Methicillin resistant Staphylococcus aureus; E11.51 Type 2 diabetes mellitus with diabetic peripheral angiopathy without gangrene; E87.1 Hypo-osmolality and hyponatremia; E11.65 Type 2 diabetes mellitus with hyperglycemia; N39.0 Urinary tract infection, site not specified; D64.9 Anemia, unspecified; E78.5 Hyperlipidemia, unspecified; I25.10 Atherosclerotic heart disease of native coronary artery without angina pectoris; L03.115 Cellulitis of right lower limb; B96.89 Other specified bacterial agents as the cause of diseases classified elsewhere; E66.9 Obesity, unspecified; E83.42 Hypomagnesemia; G47.33 Obstructive sleep apnea (adult) (pediatric); E87.6 Hypokalemia; I48.0 Paroxysmal atrial fibrillation; I74.09 Other arterial embolism and thrombosis of abdominal aorta; N17.9 Acute kidney failure, unspecified; N18.9 Chronic kidney disease, unspecified; R13.12 Dysphagia, oropharyngeal phase; R45.851 Suicidal ideations; Y95 Nosocomial condition; Z74.01 Bed confinement status; Z95.5 Presence of coronary angioplasty implant and graft; Z91.19 Patient's noncompliance with other medical treatment and regimen; Z87.01 Personal history of pneumonia (recurrent); Z83.3 Family history of diabetes mellitus
CPT/HCPCS: 31720; 36415; 36600; 70450; 71045; 71270; 71275; 73610; 74018; 74178; 76770; 76882; 80048; 80053; 80170; 80202; 81001; 82140; 82550; 82553; 82803; 82945; 82948; 83540; 83550; 83605; 83615; 83735; 83874; 83880; 83986; 84100; 84132; 84157; 84443; 84484; 85014; 85018; 85025; 85027; 85610; 85730; 87040; 87071; 87077; 87088; 87103; 87106; 87116; 87186; 87205; 87206; 88108; 88305; 89051; 92610; 93005; 93306; 93925; 93971; 93978; 94640; 94660; 94664; 94667; 94668; 97039; 99291; A4218; A4338; A4344; A7048; C1751; C1894; C9113; J0282; J0690; J0713; J1580; J1644; J1650; J1815; J1940; J2060; J2185; J3370; J3411; J3475; J3480; J3490; J7030; J7040; J7060; J7608; P9046; Q9967

== ENCOUNTER 2019-04-07 08:01 | Inpatient (IN) | payer OTHER | END 2019-04-16 13:30 | disposition home or self-care (01) | LOC: EDH 08:01 → 2DH 04-15 15:44 → 2CH 04-13 13:15 → EDHIP 08:02 → 3AH 14:08 | PROC: 0JBR0ZZ Excision of Left Foot Subcutaneous Tissue and Fascia, Open Approach (ICD-10-PCS; principal; 2019-04-08 14:48) | PROC: 04WY0KZ Revision of Nonautologous Tissue Substitute in Lower Artery, Open Approach (ICD-10-PCS; 2019-04-08 14:48) | DX: T82.898A Other specified complication of vascular prosthetic devices, implants and grafts, initial encounter (principal); E11.621 Type 2 diabetes mellitus with foot ulcer; L97.419 Non-pressure chronic ulcer of right heel and midfoot with unspecified severity; E11.51 Type 2 diabetes mellitus with diabetic peripheral angiopathy without gangrene; L03.116 Cellulitis of left lower limb; E66.01 Morbid (severe) obesity due to excess calories; L02.612 Cutaneous abscess of left foot; L97.522 Non-pressure chronic ulcer of other part of left foot with fat layer exposed; L97.429 Non-pressure chronic ulcer of left heel and midfoot with unspecified severity; E78.5 Hyperlipidemia, unspecified; I10 Essential (primary) hypertension; I25.10 Atherosclerotic heart disease of native coronary artery without angina pectoris; Z68.41 Body mass index [BMI] 40.0-44.9, adult; Z16.24 Resistance to multiple antibiotics; L97.422 Non-pressure chronic ulcer of left heel and midfoot with fat layer exposed; B95.2 Enterococcus as the cause of diseases classified elsewhere; Y83.2 Surgical operation with anastomosis, bypass or graft as the cause of abnormal reaction of the patient, or of later complication, without mention of misadventure at the time of the procedure; R53.81 Other malaise ==

== ENCOUNTER 2019-06-17 14:13 | Emergency (ER) | payer OTHER ==
[~2019-06-17 14:13] MED LIST changes: -APIX5TAB PO; +ASPI-1181 PO; -ASPI-891 PO; -ATOR40TA69 PO; -CLOP75TA14 PO; +CLOP75TA32 PO; -HYDR-4068 PO; +METF-444 PO; +METF-526 PO; -METF500T6 PO; -METO25 PO; +METO25TA6 PO; -TRAM50TA2 PO
[2019-06-17 15:08] LABS: EOSINOPHILS % (AUTO) 1.3 % (0.0-8.0); HEMATOCRIT 37.8 % (42-54); LYMPHOCYTES % (AUTO) 22.1 % (21.0-51.0); MEAN CORPUSCULAR HEMOGLOBIN 30.2 pg (27.0-33.0); MEAN CORPUSCULAR HGB CONC 33.4 g/dL (32.0-36.0); MEAN CORPUSCULAR VOLUME 90.6 fL (79-99); MONOCYTES % (AUTO) 8.2 % (3.0-13.0); NEUTROPHILS % (AUTO) 67.4 % (40.0-77.0); PLATELET COUNT (AUTO) 167 K/uL (130-400); RED BLOOD CELL COUNT(AUTO) 4.18 MIL/uL (4.50-6.20); WHITE BLOOD COUNT (AUTO) 6.1 K/uL (4.8-10.8)
[2019-06-17] MEDS ORDERED: SODIUM CHLORIDE 0.9% 1000ML 1,000 ML IV ONE (15:08)
[2019-06-17 15:25] LABS: CREATININE 1.1 mg/dL (0.5-1.5); POTASSIUM 4.2 mmol/L (3.5-5.1)
[2019-06-17 15:29] LABS: ALBUMIN 3.5 g/dL (3.5-5.0); BILIRUBIN,TOTAL 0.3 mg/dL (0.2-1.0); TOTAL PROTEIN, SERUM 7.6 g/dL (6.0-8.3)
[2019-06-17 15:54] LABS: APPEARANCE,URINE Clear (CLEAR); BILIRUBIN,URINE Negative (NEGATIVE); COLOR,URINE Yellow (YELLOW); GLUCOSE, URINE (UA) >=1000 mg/dL (NEGATIVE); KETONES,URINE Negative (NEGATIVE); LEUKOCYTE ESTERASE ,URINE Negative (NEGATIVE); NITRATE,URINE Negative (NEGATIVE); OCCULT BLOOD,URINE Negative (NEGATIVE); PH,URINE 5.5 (5.0-8.0); PROTEIN,URINE Trace mg/dL (NEGATIVE)
[2019-06-17 16:15] LABS: RBC,URINE 0-1 /HPF (0-1)
[2019-06-17 16:16] LABS: BACTERIA,URINE Rare /HPF (None Seen); MUCUS,URINE Few LPF (None Seen); SQUAMOUS EPITHELIAL CELL,UR 0-2 /HPF (0-2)
[2019-06-17] MEDS ORDERED: ACETAMINOPHEN EXTRA STRENGTH 500 MG TABLET ONE (16:58)
[2019-06-17] MEDS ORDERED: IOHEXOL-350 75 ML VIAL IV ONE (17:05)
== END 2019-06-17 18:58 | disposition home or self-care (01) ==
LOC: EDH 14:13
DX: I97 Intraoperative and postprocedural complications and disorders of circulatory system, not elsewhere classified (principal); R10.32 Left lower quadrant pain; I25.10 Atherosclerotic heart disease of native coronary artery without angina pectoris; E11.9 Type 2 diabetes mellitus without complications; E78.5 Hyperlipidemia, unspecified; I10 Essential (primary) hypertension; Y83.8 Other surgical procedures as the cause of abnormal reaction of the patient, or of later complication, without mention of misadventure at the time of the procedure; Y82.8 Other medical devices associated with adverse incidents
CPT/HCPCS: 36415; 74177; 80053; 81001; 83690; 85025; 99285; J7030; Q9967